=== PATIENT | female | born 1980 | race Caucasian/White ===

== ENCOUNTER 2017-01-31 14:58 | Emergency (ER) ==
[2017-01-31 15:10] VITALS: BP 135/79; TEMP 98.6; BMI 27.4
[2017-01-31] MEDS ORDERED: SODIUM CHLORIDE 1,000 ML IV STA (15:10)
[2017-01-31 15:19] LABS: BASOPHILS % (AUTO) 0.4 % (0.0-3.0); EOSINOPHILS # (AUTO) 0.1 K/ul (0.0-0.7); EOSINOPHILS % (AUTO) 0.5 % (0.0-7.0); HEMATOCRIT 35.8 % (37.0-47.0); HEMOGLOBIN 12.8 g/dl (12.0-16.0); IMMATURE GRANULOCYTE % (AUTO) 0.4 % (0.0-5.0); LYMPHOCYTES # (AUTO) 2.9 K/uL (0.60-3.4); LYMPHOCYTES % (AUTO) 26.2 (10.0-50.0); MEAN CORPUSCULAR HEMOGLOBIN 30.9 pg (27.0-31.0); MEAN CORPUSCULAR HGB CONC 35.8 (31.8-35.4); MEAN CORPUSCULAR VOLUME 86.5 fl (81.0-99.0); MONOCYTES # (AUTO) 0.8 K/uL (0.4-2.0); MONOCYTES % (AUTO) 7.2 (0-10); NEUTROPHILS # (AUTO) 7.2 K/ul (2.0-6.9); NEUTROPHILS % (AUTO) 65.3; PLATELET COUNT 255 10^3/uL (140-440); RED BLOOD COUNT 4.14 10^6/ul (4.20-5.40)
[2017-01-31 15:32] LABS: SERUM PREGNANCY INTERNAL QC INTERNAL QC VALID
[2017-01-31 15:39] LABS: ALBUMIN 4.3 g/dL (3.4-5.0); ALBUMIN/GLOBULIN RATIO 1.3; ANION GAP 12.2; BILIRUBIN,TOTAL 0.38 mg/dL (0.00-1.20); BUN/CREATININE RATIO 10.41; CALCIUM 9.5 mg/dL (8.2-10.2); CREATININE 0.96 mg/dL (0.60-1.30); POTASSIUM 3.2 mmol/L (3.5-5.10); TOTAL PROTEIN 7.6 g/dL (6.4-8.2)
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
== END 2017-01-31 18:45 | disposition home or self-care (01) ==
LOC: ED 14:58
DX: M54.2 Cervicalgia (principal); R07.89 Other chest pain; R51 Headache; M79.1 Myalgia; V47.5XXA Car driver injured in collision with fixed or stationary object in traffic accident, initial encounter; F17.210 Nicotine dependence, cigarettes, uncomplicated
CPT/HCPCS: 36415; 80053; 82150; 83690; 84702; 84703; 85025; 96360; 96361; 99283

== ENCOUNTER 2017-02-16 01:45 | Outpatient (CLI) | END 2017-02-16 01:46 | disposition short-term general hospital (02) | LOC: AMBL 01:45 | PROVIDERS: ATTEND Family Medicine | DX: R10.31 Right lower quadrant pain (principal) ==

== ENCOUNTER 2017-07-21 14:39 | Inpatient (IN) ==
[2017-07-21 14:43] VITALS: BMI 28.3
[2017-07-21] MEDS ORDERED: SODIUM CHLORIDE 500 ML IV STA (15:12)
[2017-07-21] MEDS ORDERED: TYLENOL PO STA (15:15)
--- NOTE | 2017-07-21 15:16 | ED.PDOC ---
General ED Provider: Dr. GEOVANNA MANNING Chief Complaint: Fever Stated Complaint: Fever and Abdominal pain. Patient states that 3 days ago she developed RLQ abdominal pain. The pain radiated into Rt FLANK. Denies symptoms of dysuria or vaginal discharge. No chance of .Has taken no antipyretitic meds today. No recent uti. Experiencing chills. Time Seen by Physician: 14:50 Mode of Arrival: Walk-In Information Source: Patient Exam Limitations: No limitations Primary Care Provider: EDIS ARTEAGA Referred to ED by: PCP Nursing and Triage Documentation Reviewed and Agree: Yes Reviewed sepsis parameters & appropriate labs ordered?: Yes System Inflammatory Response Syndrome: Temp 101F or Greater, Pulse >90 BPM Sepsis Protocol: For patient's 13 years and over: Temp is 96.8 and below OR 101 and greater Pulse >90 BPM Resp >20/minute Acutely Altered Mental Status Are patient's symptoms suggestive of a new infection, such as: -Pneumonia -Skin, Soft Tissue -Endocarditis -UTI -Bone, Joint Infection -Implantable Device -Acute Abdominal Infection -Wound Infection -Meningitis -Blood Stream Catheter Infection -Unknown System Inflammatory Response Syndrome: Not Applicable GI Complaint Exam - Abdominal Pain Complaint/Exam Symptoms Are: Still present Timing: Constant Initial Severity: Severe Current Severity: Severe Location of Pain: RLQ, Suprapubic (Flank) Radiates To: Reports: Flank Character: Reports: Sharp, Aching, Burning Aggravating: Reports: Movement, Deep breaths Alleviating: Reports: Rest Associated Signs and Symptoms: Reports: Fever, Back pain, Constipation. Denies : Blood in stool, Dysuria, Urinary frequency, Vaginal bleeding, Vaginal discharge, Nausea, Vomiting, Diarrhea Review of Systems - Review Of Systems Constitutional: Reports: Chills, Fever, Loss of appetite Eyes: Reports: No symptoms Ears, Nose, Mouth, Throat: Reports: No symptoms Respiratory: Reports: No symptoms Cardiac: Reports: No symptoms GI: Reports: No symptoms : Reports: Discharge, Flank pain, Pain. Denies: Burning, Dysuria, Frequency Musculoskeletal: Reports: Back pain Skin: Reports: No symptoms Neurological: Reports: No symptoms Endocrine: Reports: No symptoms Hematologic/Lymphatic: Reports: No symptoms All Other Systems: Reviewed and Negative Past Medical History - Past Medical History Previously Healthy: Yes Endocrine: Reports: Unknown Cardiovascular: Reports: Unknown Respiratory: Reports: Unknown Hematological: Reports: Unknown Gastrointestinal: Reports: Unknown Genitourinary: Reports: Unknown Neuro/Psych: Reports: Unknown Musculoskeletal: Reports: Unknown Cancer: Reports: Unknown Last Menstrual Period: UTERINE ABLASION - Surgical History General Surgical History: Reports: Unknown - Family History Family History: Reports: Unknown - Social History Smoking Status: Current every day smoker, Heavy tobacco smoker Hx Substance Use: No Alcohol Screening: None - Immunizations Tetanus Shot up to Date: No Physical Exam - Physical Exam Appearance: Ill-appearing, Thin Ill-appearing: Moderate Pain Distress: Severe Eyes: ANGELICA, EOMI, Conjunctiva clear ENT: Ears normal, Nose normal, Oropharynx normal Neck: Nonsupple Respiratory: Airway patent, Breath sounds clear, Breath sounds equal Cardiovascular: RRR, Pulses normal, No rub, No murmur, Irregular rhythm GI/: Soft Musculoskeletal: Normal strength (Severe Rt Flank tenderness), ROM intact, No edema, No calf tenderness Skin: Warm, Diaphoretic Neurological: Sensation intact Psychiatric: Affect appropriate, Mood appropriate Re-Evaluation - Re-Evaluation Time of Re-Evaluation: 17:00 Status: Improved Vital Signs Stable: Yes Appearance: NAD Lungs: Clear Skin: Warm and Dry Neuro: Alert and Oriented X3 CV: RRR (Discussed case with Dr Rubio who agrees to accept patient for admission ) Physician Notification - Case Discussed Physician Notified: Dr Leroy Rubio Time of Notification: 17:00 Critical Care Note - Critical Care Note Total Time (mins): 30 Course - Course Hematology/Chemistry: 07/21/17 15:25 07/21/17 15:25 Orders, Labs, Meds: Lab Review 07/21/17 07/21/17 07/21/17 15:25 15:25 15:25 WBC 14.72 H RBC 3.70 L Hgb 11.4 L Hct 32.4 L MCV 87.6 MCH 30.8 MCHC 35.2 RDW Coeff of Marbin 11.7 Plt Count 160 Immature Gran % (Auto) 0.5 Neut % (Auto) 77.7 Lymph % (Auto) 9.5 L Ulster % (Auto) 12.0 H Eos % (Auto) 0.1 Baso % (Auto) 0.2 Immature Gran # (Auto) 0.1 Neut # 11.4 H Lymph # 1.4 Ulster # 1.8 Eos # 0.0 Baso # 0.0 Sodium 133 L Potassium 3.8 Chloride 99 Carbon Dioxide 23 Anion Gap 14.8 BUN 7 Creatinine 0.89 Estimated GFR (MDRD) 71.00 BUN/Creatinine Ratio 7.86 Glucose 104 Lactic Acid 12.4 Calcium 8.5 Total Bilirubin 0.5 AST 15 ALT 14 Alkaline Phosphatase 66 Total Protein 6.9 Albumin 2.9 L Globulin 4.0 Albumin/Globulin Ratio 0.73 Lipase 8 Procalcitonin 07/21/17 15:25 WBC RBC Hgb Hct MCV MCH MCHC RDW Coeff of Marbin Plt Count Immature Gran % (Auto) Neut % (Auto) Lymph % (Auto) [place] % (Auto) Eos % (Auto) Baso % (Auto) Immature Gran # (Auto) Neut # Lymph # Ulster # Eos # Baso # Sodium Potassium Chloride Carbon Dioxide Anion Gap BUN Creatinine Estimated GFR (MDRD) BUN/Creatinine Ratio Glucose Lactic Acid Calcium Total Bilirubin AST ALT Alkaline Phosphatase Total Protein Albumin Globulin Albumin/Globulin Ratio Lipase Procalcitonin 0.25 Orders Category Date Time Status [facility] ADMISSION 07/21/17 17: 03 Active NPO REMINDER: IMAGING ONCE CARE 07/21/17 15:39 Completed TELEMETRY MONITORING TELE CARE 07/21/17 17:04 Active BLOOD CULTURE (ED ONLY) Stat LAB 07/21/17 15:25 Received CBC W/ AUTO DIFF Stat LAB 07/21/17 15:25 Completed CMP [COMPREHENSIVE METABOLIC PANEL] Stat LAB 07/21/17 15:25 Completed LACTIC ACID Stat LAB 07/21/17 15:25 Completed LIPASE Stat LAB 07/21/17 15:25 Completed PROCALCITONIN Stat LAB 07/21/17 15:25 Completed URINALYSIS C & S IF INDICATED Stat LAB 07/21/17 15:14 Uncollected Acetaminophen [Tylenol] MEDS 07/21/17 15:15 Discontinued 650 mg PO ONCE STA Dexamethasone 4 mg/ml Inj [Decadron 4 mg/ml Sdv] MEDS 07/21/17 17:05 Stat 4 mg IVP ONCE STA Hydromorphone HCl [Dilaudid 1 mg/ml Syringe] MEDS 07/21/17 16:35 Discontinued 1 mg IVP ONCE STA Ibuprofen [Motrin] MEDS 07/21/17 17:06 Stat 600 mg PO ONCE STA Levofloxacin/D5w [Levaquin] 150 ml MEDS 07/21/17 15:49 Discontinued IV .STK-MED Levofloxacin/D5w [Levaquin] 750 mg MEDS 07/21/17 15:42 Active Premix 150 ml D5w 1 bag IV ONCE Promethazine HCl [Phenergan 25 mg/ml Vial] MEDS 07/21/17 16:37 Discontinued 25 mg .ROUTE .STK-MED ONE Promethazine HCl [Phenergan 25 mg/ml Vial] 25 mg MEDS 07/21/17 16:34 Active 0.9 % Sodium Chloride [Sodium Chloride] 50 ml IV ONCE Sodium Chloride 0.9% [Sodium Chloride] 500 ml MEDS 07/21/17 15:12 Discontinued IV BOLUS CHEST, 2 VIEWS PA & LAT Stat RADS 07/21/17 16:[address] ABDOMEN/PELVIS W/WO CONTRAS Stat RADS 07/21/17 15:37 Completed Medications Discontinued Medications Generic Name Dose Route Start Last Admin Trade Name Freq PRN Reason Stop Dose Admin Acetaminophen 650 mg 07/21/17 15:15 07/21/17 15:22 Tylenol PO 07/21/17 15:16 650 mg ONCE STA Administration Dexamethasone Sodium Phosphate 4 mg 07/21/17 17:05 Decadron 4 Mg/Ml Sdv IVP 07/21/17 17:06 ONCE STA Hydromorphone HCl 1 mg 07/21/17 16:35 07/21/17 16:43 Dilaudid 1 Mg/Ml Syringe IVP 07/21/17 16:36 1 mg ONCE STA Administration Sodium Chloride 500 mls @ 500 mls/hr 07/21/17 15:12 07/21/17 15:18 Sodium Chloride IV 07/21/17 16:11 500 mls/hr BOLUS STA Administration Levofloxacin/Dextrose 750 mg/ 150 mls @ 100 mls/hr 07/21/17 15:42 07/21/17 15 :53 Dextrose IV 07/21/17 17:11 100 mls/hr ONCE STA Administration Promethazine HCl 25 mg/ Sodium 51 mls @ 75 mls/hr 07/21/17 16:34 07/21/17 17: 12 Chloride IV 07/21/17 17:14 Not Given ONCE STA Ibuprofen 600 mg 07/21/17 17:06 07/21/17 17:12 Motrin PO 07/21/17 17:07 Not Given ONCE STA Vital Signs: Temp Pulse Resp BP Pulse Ox 07/21/17 17:07 100.3 F H 07/21/17 16:30 102.2 F H 07/21/17 14:40 104.5 F H 133 H 20 134/84 96 Departure - Departure Time of Disposition: 17:15 Disposition: ADMITTED INPATIENT Discharge Problem: Pyelonephritis, Sepsis Condition: Fair Pt referred to PMD for follow-up: Yes (post hospitalism) IPMP verified?: No (NI) Allergies/Adverse Reactions: Allergies No Known Allergies Allergy (Unverified 07/21/17 14:43) Home Medications: Ambulatory Orders 1 [No Reported Medications] 01/31/17 Transfer Form Completed: Yes Disposition Discussed With: Patient, Family, Other (Dr Rubio Contacted and explained to him pts conditon ;agreed to accept patient)
[2017-07-21] MEDS ORDERED: LEVAQUIN 750 MG in PREMIX 150 ML D5W 1 BAG IV STA (15:42)
[2017-07-21] MEDS ORDERED: LEVAQUIN 150 ML IV ONE (15:49)
--- NOTE | 2017-07-21 16:22 | DI ---
EXAM: Chest two views HISTORY: Abdominal pain COMPARISON: None TECHNIQUE: Two views of the chest were performed FINDINGS: The lungs are clear. There is no pleural effusion or pneumothorax. The heart is normal i n size. The mediastinal contour is normal. There are no acute abnormalities of the bones. No free a ir beneath the diaphragm. IMPRESSION: No acute cardiopulmonary process.
--- NOTE | 2017-07-21 16:32 | CT ---
EXAM: CT ABDOMEN AND PELVIS HISTORY: Acute abdominal/flank pain. TECHNIQUE: CT abdomen and pelvis with and without intravenous contrast. Multiplanar images provided . 75 ml Omnipaque. FINDINGS: Comparison may be made to 01/31/2017. No nephrolithiasis is identified. No noticeable hydronephrosis. The the right kidney has scattered areas of decreased cortical enhancement and there is moderate right perinephric fat stranding. Urina ry bladder is grossly unremarkable. Liver, spleen, gallbladder, pancreas and adrenal glands are within normal limits. Normal abdominal a mookie. No gastric distension. Normal appendix. Bowel gas pattern is normal. Uterus appears normal. No ascites. Ventral abdominal wall is intact without herniation. Bones appear appropriate for age. Lung bases are clear. There is no pneumoperitoneum. IMPRESSION: Findings most concerning for right pyelonephritis. Conceivably this appearance could be consistent with recent obstruction although no calculi are identified.
[2017-07-21] MEDS ORDERED: PHENERGAN 25 MG/ML VIAL 25 MG in SODIUM CHLORIDE 50 ML IV STA (16:34)
[2017-07-21] MEDS ORDERED: DILAUDID 1 MG/ML SYRINGE IVP STA (16:35)
[2017-07-21] MEDS ORDERED: PHENERGAN 25 MG/ML VIAL ONE (16:37)
[2017-07-21] MEDS ORDERED: AZACTAM 1 GM in SODIUM CHLORIDE 50 ML IV STA (17:04)
[2017-07-21] MEDS ORDERED: DECADRON 4 MG/ML SDV IVP STA (17:05)
[2017-07-21] MEDS ORDERED: MOTRIN PO STA (17:06)
[2017-07-21] MEDS ORDERED: PHENERGAN 25 MG/ML VIAL 25 MG in SODIUM CHLORIDE 50 ML IV PRN (17:45)
[2017-07-21] MEDS: SODIUM CHLORIDE 500 ML IV SCH (18:18)
[2017-07-21] MEDS ORDERED: AZACTAM ONE (18:20)
[2017-07-21] MEDS: AZACTAM 1 GM in SODIUM CHLORIDE 50 ML IV SCH ×2 (18:22→21:08)
[2017-07-21] MEDS: TYLENOL PO SCH (19:48)
[2017-07-21] MEDS ORDERED: DILAUDID 2 MG/ML SYRINGE ONE (22:26)
[2017-07-22] MEDS ORDERED: DILAUDID 2 MG/ML SYRINGE ONE (04:58)
[2017-07-22] MEDS: TYLENOL PO SCH ×3 (05:03→20:33)
[2017-07-22] MEDS: AZACTAM 1 GM in SODIUM CHLORIDE 50 ML IV SCH ×3 (05:04→20:31)
[2017-07-22] MEDS ORDERED: AZACTAM ONE (05:22)
[2017-07-22] MEDS: SODIUM CHLORIDE 500 ML IV SCH ×3 (05:41→13:04)
[2017-07-22] MEDS ORDERED: SODIUM CHLORIDE 1,000 ML IV SCH ×2 (07:30→12:00)
[2017-07-22] MEDS: LEVAQUIN 750 MG in PREMIX 150 ML D5W 1 BAG IV SCH (07:45)
[2017-07-22] MEDS ORDERED: PHENERGAN 25 MG/ML VIAL ONE (12:46)
[2017-07-22] MEDS: DILAUDID 1 MG/ML SYRINGE IVP PRN (13:00)
[2017-07-23] MEDS: AZACTAM 1 GM in SODIUM CHLORIDE 50 ML IV SCH ×2 (05:19→20:20)
[2017-07-23] MEDS: TYLENOL PO SCH (05:19)
[2017-07-23] MEDS: DILAUDID 1 MG/ML SYRINGE IVP PRN ×3 (05:24→20:20)
[2017-07-23] MEDS ORDERED: TYLENOL PO PRN (08:37)
[2017-07-23] MEDS: LEVAQUIN 750 MG in PREMIX 150 ML D5W 1 BAG IV SCH (09:19)
--- NOTE | 2017-07-23 10:06 | PCM.PROG ---
Attending Provider: ATTENDING PROVIDER: [facility] This patient is seen with Dorene To, Nurse Practitioner. DATE OF SERVICE: 07/23/17 SUBJECTIVE: This 37 year old WHITE/ F was hospitalized 07/21/17. The patient is alert, lying in bed. No fever since July 21, 2017. She has been drinking well, no nausea. CT scan showed acute pyelonephritis. REVIEW OF SYSTEMS: CONSTITUTIONAL: No night sweats. No fatigue, malaise, lethargy. No fever or chills. HEENT: Eyes: No visual changes. No eye pain. No eye discharge. ENT: No runny nose. No epistaxis. No sinus pain. No odynophagia. No congestion. RESPIRATORY: No cough, no congestion. No hemoptysis. No shortness of breath. CARDIOVASCULAR: No angina symptoms. No CHF symptoms. No atypical chest pain for CAD. No palpitations. No orthopnea.. GASTROINTESTINAL: Right flank pain. No nausea or vomiting. No diarrhea or constipation. No hematemesis. No hematochezia. GENITOURINARY: No urgency. No frequency. No dysuria. No hematuria. No obstructive symptoms. No discharge. No pain. No significant abnormal bleeding. MUSCULOSKELETAL: No musculoskeletal pain; no joint swelling. NEUROLOGICAL: Awake, alert, oriented to time, place and person. No headache. No neck pain. No syncope. No seizures. No dizziness. PSYCHIATRIC: Not anxious. No depression. No suicidal thoughts. No homicidal thoughts. SKIN: No rash. No lesions. No wounds. ENDOCRINE: No unexplained weight loss. No weight gain. HEMATOLOGIC/LYMPHATIC: No anemia. No purpura. No petechiae. No prolonged or excessive bleeding. No palpable lymph nodes. PHYSICAL EXAMINATION: GENERAL: The patient is awake, alert and oriented, lying in bed in no distress. VITAL SIGNS: Temperature 97.9 F, Pulse 75, Respiratory Rate 18, BP 113/70, Pulse Ox 97% HEENT: Head normocephalic, atraumatic. Eyes: Extraocular muscles are intact. Pupils are equal, round and reactive to light and accommodation. Ears: No lesions. Nose appeared normal. Throat: No exudate or erythema. NECK: Supple. No JVD, no carotid bruit. No lymphadenopathy or thyromegaly. LUNGS: Clear to auscultation. Percussion note normal. Chest symmetrical. HEART: S1, S2, no S3. No murmurs. No cyanosis or clubbing. No ascites. Pulses: Dorsalis pedis and posterior tibial pulses +1 to +2 both sides. ABDOMEN: Soft. Non-tender. Bowel sounds active. Mild right CVA tenderness. No mass felt. EXTREMITIES: No edema. Full range of motion of all extremities, equal. NEUROLOGIC: No focal deficit. Cranial nerves II through XII are grossly intact. No headache, no double vision or headache. SKIN: Not dry. Intact. Turgor-normal. LYMPHATIC: No palpable lymph nodes/no lymphedema. MUSCULOSKELETAL: Normal joints with no swelling. Muscle tone is normal. LAB REVIEW: 07/23/17 04:20 07/23/17 04:20 07/23/17 04:20: Sodium 142, Potassium 4.0, Chloride 110 H, Carbon Dioxide 25, Anion Gap 11.0, BUN 8, Creatinine 0.70, Estimated GFR (MDRD) 94.00, BUN/ Creatinine Ratio 11.42, Glucose 99, Calcium 8.3, Total Bilirubin < 0.3, AST 22, ALT 20, Alkaline Phosphatase 71, Total Protein 5.7 L, Albumin 2.4 L, Globulin 3.3, Albumin/Globulin Ratio 0.73 07/23/17 04:20: WBC 11.38 H, RBC 3.16 L, Hgb 9.5 L, Hct 28.3 L, MCV 89.6, MCH 30.1, MCHC 33.6, RDW Coeff of Marbin 11.9, Plt Count 221 D, Immature Gran % (Auto ) 0.4, Neut % (Auto) 70.8, Lymph % (Auto) 21.4, Arthur % (Auto) 7.0, Eos % (Auto) 0.2, Baso % (Auto) 0.2, Immature Gran # (Auto) 0.1, Neut # 8.1 H, Lymph # 2.4, Arthur # 0.8, Eos # 0.0, Baso # 0.0 07/22/17 05:30: Vitamin B12 237 07/22/17 05:30: Iron 31 L, TIBC 178 L, % Saturation 17, Unsat Iron Binding 147, Ferritin 214.87 H, Folate 9.3 07/22/17 05:30: Reticulocyte % (Auto) 0.95, Absolute Retic 0.0314, Retic Hgb Equivalent 26.9 ASSESSMENT: 1. ACUTE PYELONENHRITIS WITH FEVER IMPROVING 2. SMOKER PLAN: 1. Azactam every 12 hr 2. D/C telemetry 3. D/C IV fluids 4. Tylenol p.r.n. Plan and coordination of the patient's care discussed in the presence of Pricing Intern and nurse. CONDITION: Stable SCRIBED BY: Senia MARTINEZ scribed while in presence of service performed by Dr. Armendariz/Dorene To APRN on 07/23/17 ([id number])
[2017-07-24] MEDS ORDERED: VITAMIN B-12 IM STA (08:02)
[2017-07-24] MEDS: AZACTAM 1 GM in SODIUM CHLORIDE 50 ML IV SCH ×2 (08:31→21:44)
[2017-07-24] MEDS: LEVAQUIN 750 MG in PREMIX 150 ML D5W 1 BAG IV SCH (09:20)
--- NOTE | 2017-07-24 12:46 | PCM.PROG ---
Attending Provider: ATTENDING PROVIDER: [facility] This patient is seen with Dorene To, Nurse Practitioner. DATE OF SERVICE: 07/24/17 SUBJECTIVE: This 37 year old WHITE/ F was hospitalized 07/21/17. The patient is alert, lying in bed. She still has some right flank pain. No fever. No nausea. REVIEW OF SYSTEMS: CONSTITUTIONAL: No night sweats. No fatigue, malaise, lethargy. No fever or chills. HEENT: Eyes: No visual changes. No eye pain. No eye discharge. ENT: No runny nose. No epistaxis. No sinus pain. No odynophagia. No congestion. RESPIRATORY: No cough, no congestion. No hemoptysis. No shortness of breath. CARDIOVASCULAR: No angina symptoms. No CHF symptoms. No atypical chest pain for CAD. No palpitations. No orthopnea.. GASTROINTESTINAL: No abdominal pain. No nausea or vomiting. No diarrhea or constipation. No hematemesis. No hematochezia. GENITOURINARY: No urgency. No frequency. No dysuria. No hematuria. No obstructive symptoms. No discharge. No pain. No significant abnormal bleeding. MUSCULOSKELETAL: Right flank pain. NEUROLOGICAL: Awake, alert, oriented to time, place and person. No headache. No neck pain. No syncope. No seizures. No dizziness. PSYCHIATRIC: Not anxious. No depression. No suicidal thoughts. No homicidal thoughts. SKIN: No rash. No lesions. No wounds. ENDOCRINE: No unexplained weight loss. No weight gain. HEMATOLOGIC/LYMPHATIC: No anemia. No purpura. No petechiae. No prolonged or excessive bleeding. No palpable lymph nodes. PHYSICAL EXAMINATION: GENERAL: The patient is awake, alert and oriented, lying in bed in no distress. VITAL SIGNS: Temperature 99.3 F, Pulse 88, Respiratory Rate 16, BP 112/66, Pulse Ox 96% HEENT: Head normocephalic, atraumatic. Eyes: Extraocular muscles are intact. Pupils are equal, round and reactive to light and accommodation. Ears: No lesions. Nose appeared normal. Throat: No exudate or erythema. NECK: Supple. No JVD, no carotid bruit. No lymphadenopathy or thyromegaly. LUNGS: Clear to auscultation. Percussion note normal. Chest symmetrical. HEART: S1, S2, no S3. No murmurs. No cyanosis or clubbing. No ascites. Pulses: Dorsalis pedis and posterior tibial pulses +1 to +2 both sides. ABDOMEN: Soft. Non-tender. Bowel sounds active. Mild right CVA tenderness. No mass felt. EXTREMITIES: No edema. Full range of motion of all extremities, equal. NEUROLOGIC: No focal deficit. Cranial nerves II through XII are grossly intact. No headache, no double vision or headache. SKIN: Not dry. Intact. Turgor-normal. LYMPHATIC: No palpable lymph nodes/no lymphedema. MUSCULOSKELETAL: Normal joints with no swelling. Muscle tone is normal. LAB REVIEW: 07/24/17 04:50 07/24/17 04:50 07/24/17 04:50: Sodium 140, Potassium 4.2, Chloride 105, Carbon Dioxide 28, Anion Gap 11.2, BUN 7, Creatinine 0.77, Estimated GFR (MDRD) 84.00, BUN/ Creatinine Ratio 9.09, Glucose 84, Calcium 8.4, Total Bilirubin < 0.3, AST 23, ALT 24, Alkaline Phosphatase 65, Total Protein 5.3 L, Albumin 2.3 L, Globulin 3.0, Albumin/Globulin Ratio 0.77 07/24/17 04:50: WBC 9.37, RBC 3.14 L, Hgb 9.4 L, Hct 27.9 L, MCV 88.9, MCH 29.9 , MCHC 33.7, RDW Coeff of Marbin 12.2, Plt Count 223, Neutrophils % (Manual) 47.0, Lymphocytes % (Manual) 46.0, Monocytes % (Manual) 7.0, Anisocytosis Not present ASSESSMENT: 1. RIGHT PYELONEPHRITIS 2. ANEMIA PLAN: 1. B12 shot 2. Repeat CT scan of abdomen and pelvis without Plan and coordination of the patient's care discussed in the presence of Boiler Out and nurse. CONDITION: Stable SCRIBED BY: Senia MARTINEZ scribed while in presence of service performed by Dr. Armendariz/Dorene To APRN on 07/24/17 ([id number])
--- NOTE | 2017-07-24 13:37 | CT ---
EXAM: CT of the abdomen pelvis without contrast History: Abdominal pain. Comparison: CT abdomen pelvis 08/18/2017 Technique: Multiplanar CT images through the abdomen pelvis were obtained without the administration of IV contrast Findings: Subsegmental atelectasis seen within the lower lungs. No acute osseous abnormalities. No focal liver or splenic lesions. No peripancreatic inflammation. Adrenal glands are unremarkable. No significant interval change in the right perinephric stranding. No renal stones and no hydronep hrosis. The appendix is normal. No ureteral calculi. Left kidney is unremarkable. No bowel obstru ction. No bladder wall thickening. Adnexal structures appear appropriate for patient's age. No per irectal inflammation. No free air and no free fluid. Impression: No significant interval change in the right perinephric stranding consistent with pyelon ephritis. No other significant findings.
--- NOTE | 2017-07-24 14:23 | PN ---
DATE OF SERVICE: 07/23/17 SUBJECTIVE: 37 year old white female seen with Nurse Practitioner has acute pyelonephritis. The patient's condition is stable. Hgb and hct are stable with hgb of 9.5, hct 28. The patient has anemia. The patient is afebrile. PHYSICAL EXAMINATION: HEENT: Head normocephalic, atraumatic. Eyes: Extraocular muscles are intact. Pupils are equal, round and reactive to light and accommodation. Ears: No lesions. Nose appeared normal. Throat: No exudate or erythema. NECK: Supple. No JVD, no carotid bruit. No lymphadenopathy or thyromegaly. LUNGS: Decreased breath sounds but clear to auscultation. Percussion note normal. Chest symmetrical. HEART: S1, S2, no S3. No murmurs. No cyanosis or clubbing. No ascites. Pulses: Dorsalis pedis and posterior tibial pulses +1 to +2 both sides. ABDOMEN: Soft. Nontender. Bowel sounds active. No CVA tenderness. No mass felt. EXTREMITIES: No edema. Full range of motion of all extremities, equal. NEUROLOGIC: No focal deficit. Cranial nerves II through XII are grossly intact. No headache, no double vision or headache. SKIN: Not dry. Intact. Turgor - normal. LYMPHATIC: No palpable lymph nodes/no lymphedema. MUSCULOSKELETAL: Normal joints with no swelling. Muscle tone is normal. ASSESSMENT: 1. Acute pyelonephritis PLAN: 1. Continue Levaquin and Azactam TIME SPENT: More than 30 minutes. Plan and coordination of the patient's care discussed in the presence of nurse. EUGENE
[2017-07-25] MEDS: LEVAQUIN 750 MG in PREMIX 150 ML D5W 1 BAG IV SCH (08:50)
[2017-07-25] MEDS ORDERED: FERROUS SULFATE PO SCH (09:00)
--- NOTE | 2017-07-25 09:48 | PCM.PROG ---
Attending Provider: [facility] DATE OF SERVICE: 07/25/17 SUBJECTIVE: This 37 year old WHITE/ F was hospitalized 07/21/17 with right-sided acute pyelonephritis. The patient is afebrile. Appetite and strengh improving. REVIEW OF SYSTEMS: CONSTITUTIONAL: Strength is improving. No night sweats. No malaise, lethargy. No fever or chills. HEENT: Eyes: No visual changes. No eye pain. No eye discharge. ENT: No runny nose. No epistaxis. No sinus pain. No odynophagia. No congestion. RESPIRATORY: No cough, no congestion. No hemoptysis. No shortness of breath. CARDIOVASCULAR: No angina symptoms. No CHF symptoms. No atypical chest pain for CAD. No palpitations. No orthopnea.. GASTROINTESTINAL: Appetite is improving. Mild abdominal discomfort. No nausea or vomiting. No diarrhea or constipation. No hematemesis. No hematochezia. GENITOURINARY: No urgency. No frequency. No dysuria. No hematuria. No obstructive symptoms. No discharge. No pain. No significant abnormal bleeding. MUSCULOSKELETAL: No musculoskeletal pain; no joint swelling. NEUROLOGICAL: Awake, alert, oriented to time, place and person. No headache. No neck pain. No syncope. No seizures. No dizziness. PSYCHIATRIC: Not anxious. No depression. No suicidal thoughts. No homicidal thoughts. SKIN: No rash. No lesions. No wounds. ENDOCRINE: No unexplained weight loss. No weight gain. HEMATOLOGIC/LYMPHATIC: No anemia. No purpura. No petechiae. No prolonged or excessive bleeding. No palpable lymph nodes. PHYSICAL EXAMINATION: GENERAL: The patient is awake, alert and oriented, lying in bed in no distress. VITAL SIGNS: Temperature 98.2 F, Pulse 70, Respiratory Rate 18, BP 136/90, Pulse Ox 98% HEENT: Head normocephalic, atraumatic. Eyes: Extraocular muscles are intact. Pupils are equal, round and reactive to light and accommodation. Ears: No lesions. Nose appeared normal. Throat: No exudate or erythema. NECK: Supple. No JVD, no carotid bruit. No lymphadenopathy or thyromegaly. LUNGS: Clear to auscultation. Percussion note normal. Chest symmetrical. HEART: S1, S2, no S3. No murmurs. No cyanosis or clubbing. No ascites. Pulses: Dorsalis pedis and posterior tibial pulses +1 to +2 both sides. ABDOMEN: Soft. Very mild abdominal discomfort. Bowel sounds active. No CVA tenderness. No mass felt. EXTREMITIES: No edema. Full range of motion of all extremities, equal. NEUROLOGIC: No focal deficit. Cranial nerves II through XII are grossly intact. No headache, no double vision or headache. SKIN: Warm and dry. Intact. Turgor-normal. LYMPHATIC: No palpable lymph nodes/no lymphedema. MUSCULOSKELETAL: Normal joints with no swelling. Muscle tone is normal. LAB REVIEW: 07/25/17 04:00 07/25/17 04:00 07/25/17 04:00: Sodium 139, Potassium 4.0, Chloride 103, Carbon Dioxide 29, Anion Gap 11.0, BUN 8, Creatinine 0.77, Estimated GFR (MDRD) 84.00, BUN/ Creatinine Ratio 10.38, Glucose 98, Calcium 9.0, Total Bilirubin < 0.3, AST 20, ALT 25, Alkaline Phosphatase 65, Total Protein 6.3 L, Albumin 2.7 L, Globulin 3.6, Albumin/Globulin Ratio 0.75 07/25/17 04:00: WBC 10.47 H, RBC 3.59 L, Hgb 10.8 L, Hct 31.4 L, MCV 87.5, MCH 30.1, MCHC 34.4, RDW Coeff of Marbin 11.8, Plt Count 253, Neutrophils % (Manual) 66.0, Lymphocytes % (Manual) 30.0, Monocytes % (Manual) 3.0, Basophils % (Manual ) 1.0, Anisocytosis Not present 07/22/17 05:30: Transferrin 149 L ASSESSMENT: 1. Acute pyelonephritis, right-sided resolving 2. Chronic anemia PLAN: 1. Ferrous Sulfate 325 mg p.o. daily 2. Repeat CT scan showed evidence of pyelonephritis Plan and coordination of the patient's care discussed in the presence of Director Adult and nurse. EDUCATION: Counseling for smoking done. CONDITION: Stable SCRIBED BY: CHIRAG BORGES Health Therapist scribed while in presence of service performed by Dr[facility] on 07/25/17 ([id number])
[2017-07-25 11:57] VITALS: BP 129/86; TEMP 98.1
[2017-07-25] MEDS: AZACTAM 1 GM in SODIUM CHLORIDE 50 ML IV SCH (13:31)
--- NOTE | 2017-07-25 15:49 | CM.DICTOOL ---
ADMISSION: 07/21/17 17:08 DISCHARGE: 07/25/17 13:49 DATE OF SERVICE: 07/25/17 FINAL DIAGNOSIS ACUTE PYELONEPHRITIS ANEMIA, (IRON DEFICIENCY) HEAVY SMOKER UTERAN ABLASION LAST VITALS Temp Pulse Resp BP Pulse Ox 98.1 F 60 20 129/86 99 07/25/17 10:00 07/25/17 10:00 07/25/17 10:00 07/25/17 10:00 07/25/17 10:00 HOME MEDICATIONS NONE ALLERGIES No Known Allergies Allergy (Verified 07/21/17 18:28) NEW PRESCRIPTIONS: LEVAQUIN 500 MG, TAKE ONE TABLET BY MOUTH DAILY FOR 10 DAYS FERROUS SULFATE 325 MG, TAKE ONE TABLET BY MOUTH DAILY SMOKING: THE PATIENT IS AN EVERY DAY HEAVY SMOKER. SHE HAS BEEN PROVIDED INFORMATION/ EDUCATION REGARDING THE ADDED RISK A CONTINUATION OF HER TOBACCO HABIT CAUSES TO HER CARDIOVASCULAR/PULMONARY HEALTH. SHE ALSO HAS BEEN ADVISED OF THE BENEFITS OF COMPLETE CESSATION. SHE HAS NOT VERBALIZED HER INTENT TO STOP OR EVEN CUT DOWN. SHE WOULD BENEFIT FROM REINFORCEMENT OF THE INFORMATION PROVIDED AND CONTINUED ENCOURAGE FOR COMPLETE CESSATION DURING HER FOLLOW UP VISITS. DISEASE SPECIFIC EDUCATION: PYELONEPHRITIS IRON DEFICIENCY ANEMIA NEW MEDICATIONS FOLLOW UP SMOKING CESSATION LAB REVIEW: 07/25/17 04:00 07/25/17 04:00 07/25/17 04:00: Sodium 139, Potassium 4.0, Chloride 103, Carbon Dioxide 29, Anion Gap 11.0, BUN 8, Creatinine 0.77, Estimated GFR (MDRD) 84.00, BUN/ Creatinine Ratio 10.38, Glucose 98, Calcium 9.0, Total Bilirubin < 0.3, AST 20, ALT 25, Alkaline Phosphatase 65, Total Protein 6.3 L, Albumin 2.7 L, Globulin 3.6, Albumin/Globulin Ratio 0.75 07/25/17 04:00: WBC 10.47 H, RBC 3.59 L, Hgb 10.8 L, Hct 31.4 L, MCV 87.5, MCH 30.1, MCHC 34.4, RDW Coeff of Marbin 11.8, Plt Count 253, Neutrophils % (Manual) 66.0, Lymphocytes % (Manual) 30.0, Monocytes % (Manual) 3.0, Basophils % (Manual ) 1.0, Anisocytosis Not present PLAN: DISCHARGE HOME TODAY RETURN TO THE [facility] FOR FOLLOW UP ON 07/30/17 at 10 A.M. NEW MEDICATIONS CALLED IN TO IMAN LEVAQUIN 500 MG, TAKE ONE TABLET BY MOUTH DAILY FOR 10 DAYS FERROUS SULFATE 325 MG, TAKE ONE TABLET BY MOUTH DAILY ACTIVITY GET PLENTY OF REST AT HOME. GRADUALLY INCREASE YOUR ACTIVITY LEVEL ACCORDING TO YOUR TOLERATION DIET DRINK PLENTY OF LIQUIDS HEALTHY HEART DIET SUMMARY THE PATIENT IS ALERT AND ORIENTED X3. SHE CURRENTLY RESIDES AT HOME AND HAS BEEN INDEPENDENT WITH ADL'S. SHE REQUIRES NO DME, HOME HEALTH OR HOMEMAKING SERVICES. AT DISCHARGE SHE DESIRES TO RETURN HOME. HER SKIN TURGOR IS GOOD AND WITHOUT DECUBITUS ULCERS. HER HYDRATION NUTRITIONAL STATUS ARE VERY GOOD. SHE IS VOIDING WITHOUT DIFFICULTY AND NOT EXPERIENCING ANY DYSURIA, SUPRAPUBIC PAIN OR FLANK PAIN. SHE IS AFEBRILE AND DESIRES TO BE DISCHARGED TODAY. SHE IS WILLING TO FOLLOW UP AT THE [facility] MENTIONED ABOVE. CURRENT CODE STATUS FULL CODE BJ ARMENDARIZ M.D.
--- NOTE | 2017-07-26 10:42 | PN ---
DATE OF SERVICE: 07/24/17 SUBJECTIVE: The patient was admitted with acute pyelonephritis. She is afebrile. Repeat CAT scan still shows right pyelonephritis. Her appetite has improved and strength is improving. Her WBC count is 9,300. This morning her temperature was 99.3 and pulse 88, respiratory 16, blood pressure 112/66 and pulse ox 96%. The patient was seen and examined with Nurse Practitioner. TIME SPENT: More than 30 minutes. Plan and coordination of the patient's care discussed in the presence of nurse. EUGENE
--- NOTE | 2017-07-26 13:56 | PN ---
DATE OF SERVICE: 07/21/17 SUBJECTIVE: 37-year-old white female came to the emergency room with right flank, moderate to severe pain along with high fever of 104 with chills. The patient's condition started a couple of days prior to hospitalization. She has history of urinary tract infection. Medications - none. PHYSICAL EXAMINATION: GENERAL: The patient is oriented to time, place and person. VITAL SIGNS: Temperature 104, pulse 110/min, respiratory rate 15, BP 130/70. HEENT: Head normocephalic, atraumatic. Eyes: Extraocular muscles are intact. Pupils are equal, round and reactive to light and accommodation. Ears: No lesions. Nose appeared normal. Throat: No exudate or erythema. NECK: Supple. No JVD, no carotid bruit. No lymphadenopathy or thyromegaly. LUNGS: Decreased breath sounds but clear to auscultation. Percussion note normal. Chest symmetrical. HEART: S1, S2, no S3. No murmurs. No cyanosis or clubbing. No ascites. Pulses: Dorsalis pedis and posterior tibial pulses +1 to +2 both sides. ABDOMEN: Soft. Nontender. Bowel sounds active. No CVA tenderness. No mass felt. EXTREMITIES: No edema. Full range of motion of all extremities, equal. NEUROLOGIC: No focal deficit. Cranial nerves II through XII are grossly intact. No headache, no double vision or headache. SKIN: Not dry. Intact. Turgor - normal. LYMPHATIC: No palpable lymph nodes/no lymphedema. MUSCULOSKELETAL: Normal joints with no swelling. Muscle tone is normal. LABS: The patient had a CT scan of the abdomen done which showed acute pyelonephritis ont he right side. Unable to give urine. ASSESSMENT: 1. ACUTE PYELONEPHRITIS 2. DEHYDRATION PLAN: 1. Given IV fluids 125 cc/hr 2. Levaquin 750 mg the first dose and q.24 hr 3. Azactam 1 gm q.12 4. Daily CBC, CMP 5. Telemetry for 24 hours 6. EKG 7. Will do chest x-ray in the morning if not done 8. The patient has already had blood cultures, urine cultures to be done but unable to give specimen so far. CONDITION: STABLE TIME SPENT: More than 30 minutes. Plan and coordination of the patient's care discussed in the presence of nurse. EUGENE
--- NOTE | 2017-07-26 14:23 | PN ---
DATE OF SERVICE: 07/22/17 SUBJECTIVE: 37-year-old white female hospitalized with right flank pain going down to the right lower quadrant, duration 2 days with fever and chills. The pain was moderate. On a scale of 1 to 10 it was 6 to 8. The patient is feeling a lot better. REVIEW OF SYSTEMS: CONSTITUTIONAL: Mild fatigue. No night sweats. No malaise, lethargy. No fever or chills. HEENT: Eyes: No visual changes. No eye pain. No eye discharge. ENT: No runny nose. No epistaxis. No sinus pain. No sore throat. No odynophagia. No congestion. RESPIRATORY: No cough, no congestion. No hemoptysis. No shortness of breath. No PND. CARDIOVASCULAR: No angina symptoms. No CHF symptoms. No atypical chest pain for CAD. No palpitations. No orthopnea. GASTROINTESTINAL: No abdominal pain. No nausea or vomiting. No diarrhea or constipation. No hematemesis. No hematochezia. GENITOURINARY: No urgency. No frequency. No dysuria. No hematuria. No obstructive symptoms. No discharge. No pain. No significant abnormal bleeding. MUSCULOSKELETAL: No musculoskeletal pain; no joint swelling. NEUROLOGICAL: No headache. No neck pain. No syncope. No seizures. No dizziness. PSYCHIATRIC: Not anxious. No depression. No suicidal thoughts. No homicidal thoughts. SKIN: No rash. No lesions. No wounds. ENDOCRINE: No unexplained weight loss. No weight gain. HEMATOLOGIC/LYMPHATIC: No anemia. No purpura. No petechiae. No prolonged or excessive bleeding. No palpable lymph nodes. PHYSICAL EXAMINATION: GENERAL: The patient is oriented to time, place and person. VITAL SIGNS: Temperature 98.7, pulse 70, respiratory rate 14, BP 100/60, pulse ox 99%. HEENT: Head normocephalic, atraumatic. Eyes: Extraocular muscles are intact. Pupils are equal, round and reactive to light and accommodation. Ears: No lesions. Nose appeared normal. Throat: No exudate or erythema. NECK: Supple. No JVD, no carotid bruit. No lymphadenopathy or thyromegaly. LUNGS: Decreased breath sounds but clear to auscultation. Percussion note normal. Chest symmetrical. HEART: S1, S2, no S3. No murmurs. No cyanosis or clubbing. No ascites. Pulses: Dorsalis pedis and posterior tibial pulses +1 to +2 both sides. ABDOMEN: Soft. Nontender. Bowel sounds active. No CVA tenderness. No mass felt. EXTREMITIES: No edema. Full range of motion of all extremities, equal. NEUROLOGIC: No focal deficit. Cranial nerves II through XII are grossly intact. No headache, no double vision or headache. SKIN: Not dry. Intact. Turgor - normal. LYMPHATIC: No palpable lymph nodes/no lymphedema. MUSCULOSKELETAL: Normal joints with no swelling. Muscle tone is normal. LABS: Hemoglobin 9.9, hematocrit 28, WBC 8,300, normal differential. Creatinine 0.6, BUN 10, potassium 4.5. T4, TSH negative. ASSESSMENT: 1. ACUTE PYELONEPHRITIS, RIGHT-SIDED PLAN: 1. Decrease IV fluids 75 cc/hr. 2. Anemia profile to be done. 3. Continue antibiotics, Levaquin and Azactam pending culture reports. 4. Counseling for smoking done. 5. Advised to drink a lot of liquids. CONDITION: Stable TIME SPENT: More than 30 minutes. Plan and coordination of the patient's care discussed in the presence of nurse. EUGENE
--- NOTE | 2017-07-26 14:36 | HP ---
DATE OF SERVICE: 07/21/17 REASON FOR HOSPITALIZATION: The patient was seen on 07/21/17 for fever, chills, abdominal pain, duration two days. HISTORY OF PRESENT ILLNESS: 37-year-old white female came to the emergency room with the above problems. The patient had severe right flank pain going down to the right lower quadrant. On further investigation the patient had evidence of acute pyelonephritis by CT scan of the abdomen and pelvis. Duration of the symptoms, the patient had with fever and chills for the past two days. She was feeling weak and tired. PAST MEDICAL HISTORY: NONE PAST SURGICAL HISTORY: NONE REVIEW OF SYSTEMS: CONSTITUTIONAL: Fatigue. Fever and chills. No night sweats. No malaise, lethargy. HEENT: Eyes: No visual changes. No eye pain. No eye discharge. ENT: No runny nose. No epistaxis. No sinus pain. No sore throat. No odynophagia. No ear pain. No congestion. RESPIRATORY: No cough, no congestion. No hemoptysis. No shortness of breath. CARDIOVASCULAR: No angina symptoms. No CHF symptoms. No atypical chest pain for CAD. No palpitations. No orthopnea. GASTROINTESTINAL: Poor appetite for two days. Severe right flank pain. Mild nausea, no vomiting. No diarrhea or constipation. No hematemesis. No hematochezia. GENITOURINARY: No urgency. No frequency. No dysuria. No hematuria. No obstructive symptoms. No discharge. No pain. No significant abnormal bleeding. MUSCULOSKELETAL: Bodyaches. NEUROLOGICAL: No headache. No neck pain. No syncope. No seizures. No dizziness. PSYCHIATRIC: Not anxious. No depression. No suicidal thoughts. No homicidal thoughts. SKIN: No rash. No lesions. No wounds. ENDOCRINE: No unexplained weight loss. No weight gain. HEMATOLOGIC/LYMPHATIC: No anemia. No purpura. No petechiae. No prolonged or excessive bleeding. No palpable lymph nodes. PERSONAL/FAMILY/SOCIAL HISTORY: The patient is , lives with a friend in [facility]. She smokes 1/2 pack a day. No alcohol abuse. No drug abuse. She performs all activities of daily living. Unemployed. MEDICATIONS: NONE ALLERGIES: NKDA PHYSICAL EXAMINATION: GENERAL: The patient is oriented to time, place and person. VITAL SIGNS: Temperature 104 in the emergency room, pulse 110, respiratory rate 17, BP 130/70. HEENT: Head normocephalic, atraumatic. Eyes: Extraocular muscles are intact. Pupils are equal, round and reactive to light and accommodation. Ears: No lesions. Nose appeared normal. Throat: No exudate or erythema. NECK: Supple. No JVD, no carotid bruit. No lymphadenopathy or thyromegaly. LUNGS: Clear to auscultation. Percussion note normal. Chest symmetrical. HEART: S1, S2, no S3. No murmurs. No cyanosis or clubbing. No ascites. Pulses: Dorsalis pedis and posterior tibial pulses +1 to +2 both sides. ABDOMEN: Soft. Mild tenderness right flank area. Bowel sounds active. No CVA tenderness. No mass felt. EXTREMITIES: No edema. Full range of motion of all extremities, equal. NEUROLOGIC: No focal deficit. Cranial nerves II through XII are grossly intact. No headache, no double vision or headache. SKIN: Not dry. Intact. Turgor - normal. LYMPHATIC: No palpable lymph nodes/no lymphedema. MUSCULOSKELETAL: Normal joints with no swelling. Muscle tone is normal. CT scan of the abdomen showed acute pyelonephritis. Creatinine and BUN all normal. ASSESSMENT: 1. ACUTE PYELONEPHRITIS, RIGHT-SIDED 2. DEHYDRATION PLAN: 1. Will give IV fluids 2. IV antibiotics, Levaquin 750 q.a.m., Azactam 1 gm q.12 3. Telemetry for 24 hours 4. Decadron given IV, 1 cc 5. Zofran for nausea 6. Watch for fluid overload 7. EKG CONDITION: Stable TIME SPENT: More than 70 minutes. MTDD
--- NOTE | 2017-07-31 09:08 | PN ---
DATE OF SERVICE: 07/25/17 SUBJECTIVE: 37 year old white female was in the room in the room when I went to see her, later on I ended up seeing her. The patient's vitals were stable. REVIEW OF SYSTEMS: CONSTITUTIONAL: No night sweats. No fatigue, malaise, lethargy. No fever or chills. HEENT: Eyes: No visual changes. No eye pain. No eye discharge. ENT: No runny nose. No epistaxis. No sinus pain. No sore throat. No odynophagia. No congestion. RESPIRATORY: No cough, no congestion. No hemoptysis. No shortness of breath. CARDIOVASCULAR: No angina symptoms. No CHF symptoms. No atypical chest pain for CAD. No palpitations. No orthopnea. GASTROINTESTINAL: No abdominal pain. No nausea or vomiting. No diarrhea or constipation. No hematemesis. No hematochezia. GENITOURINARY: No urgency. No frequency. No dysuria. No hematuria. No obstructive symptoms. No discharge. No pain. No significant abnormal bleeding. MUSCULOSKELETAL: No musculoskeletal pain; no joint swelling. NEUROLOGICAL: No headache. No neck pain. No syncope. No seizures. No dizziness. PSYCHIATRIC: Not anxious. No depression. No suicidal thoughts. No homicidal thoughts. SKIN: No rash. No lesions. No wounds. ENDOCRINE: No unexplained weight loss. No weight gain. HEMATOLOGIC/LYMPHATIC: No anemia. No purpura. No petechiae. No prolonged or excessive bleeding. No palpable lymph nodes. PHYSICAL EXAMINATION: VITAL SIGNS: She was afebrile with pulse 80, respiratory rate 15,. blood pressure was 120/70. HEENT: Head normocephalic, atraumatic. Eyes: Extraocular muscles are intact. Pupils are equal, round and reactive to light and accommodation. Ears: No lesions. Nose appeared normal. Throat: No exudate or erythema. NECK: Supple. No JVD, no carotid bruit. No lymphadenopathy or thyromegaly. LUNGS: Clear to auscultation. Percussion note normal. Chest symmetrical. HEART: S1, S2, no S3. No murmurs. No cyanosis or clubbing. No ascites. Pulses: Dorsalis pedis and posterior tibial pulses +1 to +2 both sides. ABDOMEN: Soft. Nontender. Bowel sounds active. No CVA tenderness. No mass felt. EXTREMITIES: No edema. Full range of motion of all extremities, equal. NEUROLOGIC: No focal deficit. Cranial nerves II through XII are grossly intact. No headache, no double vision or headache. SKIN: Not dry. Intact. Turgor - normal. LYMPHATIC: No palpable lymph nodes/no lymphedema. MUSCULOSKELETAL: Normal joints with no swelling. Muscle tone is normal. ASSESSMENT: 1. Acute pyelonephritis seems to have resolved 2. Anemia, stable PLAN: 1. Continue IV antibiotics 2. The patient is advised to see Urologist. Declined and said that she doesn't have any insurance. She feels fine. She understands the consequences and I explained to her that very likely she had probably had a kidney stone that she may have passed. 3. Repeat CAT scan did not show any evidence of stone but she still has some irritation there at the site where she had possibly an obstruction. 4. Kidney functions are stable. 5. She also had the IV filtrated and taken out. She refused to get it started. In fact she insisted on going home and I didn't want her to get signed out and was stable for a while so I decided to let her go. Advised her to rest. Increase fluids if fever or chills to go to the emergency room as soon as possible 6. She needs to see [facility] on Sunday. 7. Levaquin 500mg daily for total of 10 days. CONDITION: Stable. TIME SPENT: More than 30 minutes. Plan and coordination of the patient's care discussed in the presence of nurse. EUGENE
--- NOTE | 2017-07-31 09:27 | DS ---
DATE OF SERVICE: 07/25/17 FINAL DIAGNOSIS: 1. Acute pyelonephritis 2. Anemia 3. Possibility of right ureteral stone DISCHARGE INSTRUCTIONS: Discharge home today. Return to [facility] for followup on 07/30/17 at 10am. MEDICATIONS AT DISCHARGE/NEW PRESCRIPTIONS: Levaquin 500mg daily for 10 days. Ferrous Sulfate 325mg take one tablet PO daily ALLERGIES: No known allergies DIET INSTRUCTIONS: Drink plenty of liquids Healthy heart diet. ACTIVITY: Get plenty of rest at home. Gradually increase activity level according to toleration. SMOKING: The patient is an everyday heavy smoker. She has been provided information/ education regarding the added risk a continuation of her tobacco habit causes to her cardiovascular/pulmonary health. She also has been advised of the benefits of complete cessation. She has not verbalized her intent to stop or even cur down. She would benefit from reinforcement of the information provided and continued encourage for complete cessation during karuna follow up visits. DISEASE SPECIFIC EDUCATION: Pyelonephritis Iron deficiency anemia New medications Followup Smoking cessation HOSPITAL COURSE: 37 year old white female was hospitalized with fever and chills, fever of 104. Further work up revealed mild hydronephrosis with acute pyelonephritis on the right side. There was a possibility of stone probably that she may have passed because she had pain on the right flank area going to the right lower quadrant initially. She was rated as 6 to 9 on scale of 1-10. The patient was given Nubain to control her pain. IV Levaquin was started and Azactam was added. She became afebrile within 24 hours. The patient's condition stabilized and she felt a lot better. She was up and about. She was kept in the hospital for 4 days. Culture reports were negative or still pending. She has anemia which seems to be borderline microcytic. She was strongly advised to undergo workup like EKG and colonoscopy which she declined. The patient was also advised to see urologist to which she declined as she doesn't have insurance. She is intelligent and understands the consequences. She was sent home to be followed by [facility] on 07/30/17 before then if she starts having fever or chills or pain she is advised to go to the nearest emergency room CONDITION: Stable. TIME SPENT: More than 60 minutes. EUGENE
--- NOTE | 2017-07-31 09:28 | PN ---
07/21/17: Level 5 07/22/17: Intermediate 07/23/17: Intermediate 07/24/17: Intermediate 07/25/17: D as in discharge MTDD
== END 2017-07-25 13:49 | disposition home or self-care (01) | DRG 690 ==
LOC: ED 14:39 → MEDSURG B 17:08
PROVIDERS: ADMIT Internal Medicine; ATTEND Internal Medicine
DX: N10 Acute pyelonephritis (principal); N13.2 Hydronephrosis with renal and ureteral calculous obstruction; D64.9 Anemia, unspecified; R50.9 Fever, unspecified; E86.0 Dehydration; F17.210 Nicotine dependence, cigarettes, uncomplicated; Z87.440 Personal history of urinary (tract) infections; Z53.20 Procedure and treatment not carried out because of patient's decision for unspecified reasons
CPT/HCPCS: 36415; 80053; 81001; 82607; 82728; 82746; 83540; 83550; 83605; 83690; 84145; 84439; 84443; 84466; 85007; 85025; 85045; 87040; 93005; 93010; 96361; 96365; 96375; 99285

== ENCOUNTER 2017-11-14 09:08 | Inpatient (IN) ==
[2017-11-14] MEDS ORDERED: TORADOL IM STA (10:02)
--- NOTE | 2017-11-14 10:36 | ED.PDOC ---
General ED Provider: Dr. DAREN GLEASON Chief Complaint: Urinary Problem Stated Complaint: flank pain left sided with urinary symptoms Time Seen by Physician: 09:10 Mode of Arrival: Walk-In Information Source: Patient Exam Limitations: No limitations Primary Care Provider: EDIS ARTEAGA Nursing and Triage Documentation Reviewed and Agree: Yes Reviewed sepsis parameters & appropriate labs ordered?: Yes System Inflammatory Response Syndrome: Not Applicable Sepsis Protocol: For patient's 13 years and over: Temp is 96.8 and below OR 101 and greater Pulse >90 BPM Resp >20/minute Acutely Altered Mental Status Are patient's symptoms suggestive of a new infection, such as: -Pneumonia -Skin, Soft Tissue -Endocarditis -UTI -Bone, Joint Infection -Implantable Device -Acute Abdominal Infection -Wound Infection -Meningitis -Blood Stream Catheter Infection -Unknown System Inflammatory Response Syndrome: Not Applicable Complaint Exam - UTI Female Complaint/Exam Patient Complains of: Reports: Painful urination Onset/Duration: today Symptoms Are: Still present Timing: Intermittent Initial Severity: Moderate Current Severity: Moderate Location of Pain: Reports: Left, Flank Associated Signs and Symptoms: Reports: Chills Patient Rh Status: Unknown Related Surgical History: Reports: None CVA Tenderness: No Suprapubic Tenderness: No Differential Diagnoses: Bladder Dysfunction, Cystitis, Pyelonephritis Review of Systems - Review Of Systems Constitutional: Reports: No symptoms Eyes: Reports: No symptoms Ears, Nose, Mouth, Throat: Reports: No symptoms Respiratory: Reports: No symptoms Cardiac: Reports: No symptoms GI: Reports: No symptoms : Reports: Dysuria, Flank pain Musculoskeletal: Reports: No symptoms Skin: Reports: No symptoms Neurological: Reports: No symptoms Endocrine: Reports: No symptoms Hematologic/Lymphatic: Reports: No symptoms All Other Systems: Reviewed and Negative Past Medical History - Past Medical History Previously Healthy: Yes Endocrine: Reports: Unknown Cardiovascular: Reports: Unknown Respiratory: Reports: Unknown Hematological: Reports: Unknown Gastrointestinal: Reports: Unknown Genitourinary: Reports: Unknown Neuro/Psych: Reports: Unknown Musculoskeletal: Reports: Unknown Cancer: Reports: Unknown Last Menstrual Period: unknown, uterine ablation - Surgical History General Surgical History: Reports: Unknown - Family History Family History: Reports: Unknown - Social History Smoking Status: Current every day smoker, Heavy tobacco smoker Hx Substance Use: No Alcohol Screening: None Physical Exam - Physical Exam Appearance: Well-appearing, No pain distress, Well-nourished Eyes: ANGELICA, EOMI, Conjunctiva clear ENT: Ears normal, Nose normal, Oropharynx normal Respiratory: Airway patent, Breath sounds clear, Breath sounds equal, Respirations nonlabored Cardiovascular: RRR, Pulses normal, No rub, No murmur GI/: Soft, Nontender, No masses, Bowel sounds normal, No Organomegaly Musculoskeletal: Normal strength, ROM intact, No edema, No calf tenderness Skin: Warm, Dry, Normal color Neurological: Sensation intact, Motor intact, Reflexes intact, Cranial nerves intact, Alert, Oriented Psychiatric: Affect appropriate, Mood appropriate Physician Notification - Case Discussed Physician Notified: guerrero Time of Notification: 11:00 Admit To: Inpatient Critical Care Note - Critical Care Note Total Time (mins): 0 Course - Course Hematology/Chemistry: 11/16/17 04:10 11/16/17 04:10 Orders, Labs, Meds: Lab Review 11/14/17 11/14/17 11/14/17 09:27 09:27 09:35 WBC 17.30 H RBC 3.87 L Hgb 11.4 L Hct 33.9 L MCV 87.6 MCH 29.5 MCHC 33.6 RDW Coeff of Marbin 12.3 Plt Count 183 Immature Gran % (Auto) 0.7 Neut % (Auto) 81.2 Lymph % (Auto) 5.9 L [place] % (Auto) 11.5 H Eos % (Auto) 0.5 Baso % (Auto) 0.2 Immature Gran # (Auto) 0.1 Neut # (Auto) 14.0 H Lymph # (Auto) 1.0 [place] # (Auto) 2.0 Eos # (Auto) 0.1 Baso # (Auto) 0.0 Sodium Potassium Chloride Carbon Dioxide Anion Gap BUN Creatinine Estimated GFR (MDRD) BUN/Creatinine Ratio Glucose Lactic Acid Calcium Total Bilirubin AST ALT Alkaline Phosphatase Total Protein Albumin Globulin Albumin/Globulin Ratio Urine Color Yellow Urine Clarity Turbid Urine pH 6.0 Ur Specific [place] 1.015 Urine Protein 2+ Urine Glucose (UA) Negative Urine Ketones Negative Urine Blood Negative Urine Nitrite Positive Urine Bilirubin Negative Urine Urobilinogen 0.2 Ur Leukocyte Esterase 1+ Urine Microscopic WBC 50-100 Ur Squamous Epith Cells 20-30 Urine Bacteria 3+ Urine Mucus 3+ Urine Test Negative 11/14/17 11/14/17 09:35 10:20 WBC RBC Hgb Hct MCV MCH MCHC RDW Coeff of Marbin Plt Count Immature Gran % (Auto) Neut % (Auto) Lymph % (Auto) [place] % (Auto) Eos % (Auto) Baso % (Auto) Immature Gran # (Auto) Neut # (Auto) Lymph # (Auto) [place] # (Auto) Eos # (Auto) Baso # (Auto) Sodium 137 Potassium 3.6 Chloride 106 Carbon Dioxide 21 Anion Gap 13.6 BUN 7 Creatinine 0.83 Estimated GFR (MDRD) 77.00 BUN/Creatinine Ratio 8.43 Glucose 101 Lactic Acid 12.3 Calcium 9.1 Total Bilirubin 0.4 AST 150 H ALT 162 H Alkaline Phosphatase 70 Total Protein 6.8 Albumin 2.9 L Globulin 3.9 Albumin/Globulin Ratio 0.74 Urine Color Urine Clarity Urine pH Ur Specific [place] Urine Protein Urine Glucose (UA) Urine Ketones Urine Blood Urine Nitrite Urine Bilirubin Urine Urobilinogen Ur Leukocyte Esterase Urine Microscopic WBC Ur Squamous Epith Cells Urine Bacteria Urine Mucus Urine Test Orders Category Date Time Status ADMIT PATIENT INPATIENT .TO [facility] (NON-MONITORED ADMISSION 11/14/17 12: 24 Active BED) ACTIVITY .BR with [facility] CARE 11/14/17 10:36 Active VITAL SIGNS Q4HR CARE 11/14/17 10:36 Active REGULAR DIET DIETARY 11/14/17 Lunch Ordered BLOOD CULTURE (ED ONLY) Stat LAB 11/14/17 10:20 Received CBC W/ AUTO DIFF DAILY@0600 LAB 11/15/17 04:20 Completed CBC W/ AUTO DIFF DAILY@0600 LAB 11/16/17 04:10 Completed CBC W/ AUTO DIFF Stat LAB 11/14/17 09:35 Completed COMPREHENSIVE METABOLIC PANEL DAILY@0600 LAB 11/15/17 04:20 Completed COMPREHENSIVE METABOLIC PANEL DAILY@0600 LAB 11/16/17 04:10 Completed COMPREHENSIVE METABOLIC PANEL Stat LAB 11/14/17 09:35 Completed LACTIC ACID Stat LAB 11/14/17 10:20 Completed POS BC ID AND BHAVYA Stat LAB 11/14/17 10:20 Results URINALYSIS C & S IF INDICATED Stat LAB 11/14/17 09:27 Completed URINE CULTURE Routine LAB 11/14/17 09:27 Results URINE Stat LAB 11/14/17 09:27 Completed Ketorolac Tromethamine [Toradol] MEDS 11/14/17 10:02 Discontinued 60 mg IM ONCE STA Morphine Sulfate [Morphine 2 mg/ml Syringe] MEDS 11/14/17 11:26 Discontinued 2 mg IVP ONCE STA Ondansetron HCl/Pf [Zofran 4 mg/2 ml] MEDS 11/14/17 11:26 Discontinued 4 mg IVP ONCE STA Piperacillin Sodium/Tazobactam [Zosyn 3.375 gm] 3.375 MEDS 11/14/17 12:00 Discontinued gm 0.9 % Sodium Chloride [Sodium Chloride] 50 ml IV Q6HR Potassium Chloride in 0.9%NaCl [Sodium Chloride 0.9%- MEDS 11/14/17 11:00 Active KCl 20 Meq] 1,000 ml IV 75 mls/hr Sodium Chloride 0.9% [Sodium Chloride] 1,000 ml MEDS 11/14/17 11:46 Discontinued IV 70 mls/hr CT ABD/PEL WO RENAL STONE PROT Stat RADS 11/14/17 09:23 Completed U/S PELVIS IZQUIERDO VAGINAL/NON OB Stat RADS 11/14/17 10:13 Completed Medications Generic Name Dose Route Start Last Admin Trade Name Freq PRN Reason Stop Dose Admin Acetaminophen 1,000 mg 11/14/17 17:05 11/15/17 22:49 Tylenol PO 1,000 mg Q6H PRN Administration elevated temperature Docusate Sodium 100 mg 11/15/17 21:00 11/15/17 20:09 Colace PO 100 mg BID VENU Administration Potassium Chloride/Sodium Chloride 1,000 mls @ 75 mls/hr 11/14/17 11:00 11/15 17:41 Sodium Chloride 0.9%-Kcl 20 Meq IV 75 mls/hr .[id number] VENU Administration Cefepime HCl 1 gm/ Sodium 50 mls @ 50 mls/hr 11/15/17 09:00 11/15/17 20:09 Chloride IV 50 mls/hr Q12HR VENU Administration Ketorolac Tromethamine 30 mg 11/15/17 03:35 11/16/17 01:37 Toradol IVP 30 mg Q6H PRN Administration MODERATE PAIN Meperidine HCl 25 mg 11/14/17 15:31 11/15/17 22:43 Demerol 50 Mg/Ml Vial IVP 25 mg Q8H PRN Administration Abdominal Pain Ondansetron HCl 4 mg 11/14/17 15:31 Zofran 4 Mg/2 Ml IVP Q8H PRN Nausea / Vomiting Discontinued Medications Generic Name Dose Route Start Last Admin Trade Name Freq PRN Reason Stop Dose Admin Acetaminophen 500 mg 11/14/17 17:00 Tylenol PO Q6H PRN elevated temperature Piperacillin Sod/Tazobactam 50 mls @ 50 mls/hr 11/14/17 12:00 11/14/17 23:54 Sod 3.375 gm/ Sodium Chloride IV 50 mls/hr Q6HR VENU Administration Sodium Chloride 1,000 mls @ 70 mls/hr 11/14/17 11:46 11/14/17 11:48 Sodium Chloride IV 11/15/17 02:03 70 mls/hr .[id number] STA Administration Ketorolac Tromethamine 60 mg 11/14/17 10:02 11/14/17 10:39 Toradol IM 11/14/17 10:03 60 mg ONCE STA Administration Magnesium Hydroxide 30 ml 11/15/17 13:32 11/15/17 13:43 Milk Of Magnesia PO 11/15/17 13:33 Not Given ONCE STA Morphine Sulfate 2 mg 11/14/17 11:26 11/14/17 11:38 Morphine 2 Mg/Ml Syringe IVP 11/14/17 11:27 2 mg ONCE STA Administration Ondansetron HCl 4 mg 11/14/17 11:26 11/14/17 15:43 Zofran 4 Mg/2 Ml IVP 11/14/17 11:27 4 mg ONCE STA Administration Vital Signs: Temp Pulse Resp BP Pulse Ox 11/14/17 09:09 99.5 F 103 H 20 105/73 97 Departure - Departure Time of Disposition: 19:00 Disposition: ADMITTED INPATIENT Discharge Problem: Urinary symptoms, Urinary tract infectious disease Condition: Good Pt referred to PMD for follow-up: Yes IPMP verified?: No Allergies/Adverse Reactions: Allergies No Known Allergies Allergy (Verified 11/14/17 09:17) Home Medications: Ambulatory Orders 1 [No Reported Medications] 01/31/17 Disposition Discussed With: Patient
--- NOTE | 2017-11-14 10:53 | CT ---
EXAM: CT of the abdomen pelvis without contrast History: Abdominal pain. Comparison: CT abdomen pelvis 07/24/2017 Technique: Multiplanar CT images through the abdomen pelvis were obtained without the administration of IV contrast Findings: Lung bases are clear. No acute osseous abnormalities. No discrete gallstones identified by CT. No focal liver or splenic lesions. No renal stones and no hydronephrosis. Left perinephric inflammation. No ureteral calculi. No bowel obstruction. The blanquita endix is normal. No bladder wall thickening. No free air. Adnexal structures appear appropriate fo r patient's age. No perirectal inflammation. No peripancreatic inflammation. Adrenal glands are un remarkable. Impression: Left-sided pyelonephritis
--- NOTE | 2017-11-14 10:56 | US ---
EXAM: Transvaginal pelvic ultrasound. History: Left-sided abdominal and pelvic pain. Comparison: CT abdomen pelvis 07/24/2017 Technique: Multiple sonographic images through the pelvis were obtained. Color duplex Doppler was u sed to interrogate vascular flow. Findings: The uterus measures 7.5 cm x 3.7 cm x 4.7 cm. Small Nabothian cysts seen within the cervix. Endomet rium was difficult to visualize probably due to ablation and measures 3 mm thickness. 1 cm anechoic cyst seen within the uterine myometrium adjacent to the endometrium. No fluid in the cul-de-sac. Both ovaries are normal in size. Blood flow was documented within each o vary. No adnexal masses. Impression: 1. No acute sonographic findings in the pelvis. 2. Benign myometrial cyst
[2017-11-14] MEDS ORDERED: ZOFRAN 4 MG/2 ML IVP STA (11:26)
[2017-11-14] MEDS ORDERED: MORPHINE 2 MG/ML SYRINGE IVP STA (11:26)
[2017-11-14] MEDS: ZOSYN 3.375 GM 3.375 GM in SODIUM CHLORIDE 50 ML IV SCH ×3 (11:40→23:54)
[2017-11-14] MEDS ORDERED: SODIUM CHLORIDE 1,000 ML IV STA (11:46)
[2017-11-14] MEDS: SODIUM CHLORIDE 0.9%-KCL 20 MEQ 1,000 ML IV SCH (11:48)
[2017-11-14 15:00] VITALS: BMI 26.0
[2017-11-14] MEDS ORDERED: ZOFRAN 4 MG/2 ML IVP PRN (15:31)
[2017-11-14] MEDS: DEMEROL 50 MG/ML VIAL IVP PRN ×2 (15:41→23:52)
[2017-11-14] MEDS ORDERED: TYLENOL PO PRN (17:00)
[2017-11-14] MEDS ORDERED: TYLENOL ONE (17:09)
[2017-11-14] MEDS: TYLENOL PO PRN (17:11)
[2017-11-15] MEDS: TYLENOL PO PRN ×3 (01:53→22:49)
[2017-11-15] MEDS: SODIUM CHLORIDE 0.9%-KCL 20 MEQ 1,000 ML IV SCH ×2 (02:28→17:41)
[2017-11-15] MEDS: TORADOL IVP PRN (03:40)
[2017-11-15] MEDS: MAXIPIME 1 GM in SODIUM CHLORIDE 50 ML IV SCH ×2 (08:39→20:09)
[2017-11-15] MEDS ORDERED: MAXIPIME 1 GM in SODIUM CHLORIDE 50 ML IV SCH (09:00)
[2017-11-15] MEDS ORDERED: MILK OF MAGNESIA PO STA (13:32)
[2017-11-15] MEDS ORDERED: MILK OF MAGNESIA ONE (13:39)
[2017-11-15] MEDS: DEMEROL 50 MG/ML VIAL IVP PRN ×2 (13:44→22:43)
[2017-11-15] MEDS: COLACE PO SCH (20:09)
[2017-11-16] MEDS: TORADOL IVP PRN (01:37)
[2017-11-16] MEDS ORDERED: DECADRON 4 MG/ML SDV IVP STA (08:43)
[2017-11-16] MEDS: COLACE PO SCH ×2 (08:56→20:03)
[2017-11-16] MEDS: MAXIPIME 1 GM in SODIUM CHLORIDE 50 ML IV SCH ×2 (08:56→20:03)
[2017-11-16] MEDS: SODIUM CHLORIDE 0.9%-KCL 20 MEQ 1,000 ML IV SCH (08:56)
[2017-11-16] MEDS ORDERED: MILK OF MAGNESIA PO STA (08:57)
--- NOTE | 2017-11-16 09:49 | PN ---
DATE OF SERVICE: 11/15/17 SUBJECTIVE: The patient is admitted with left-sided acute pyelonephritis. 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 The patient is on Zosyn. PHYSICAL EXAMINATION: V/S: BP 94/64, respiratory rate 20, heart rate 75, temperature 97.7, saturation 99. HEENT: Normocephalic, atraumatic. Mucosa dry. Pallor positive. No icterus. NECK: Supple. No JVD, no carotid bruit. No lymphadenopathy. LUNGS: Clear to auscultation. No rales or rhonchi. HEART: S1, S2 normal. No S3. No murmur, gallop or regurgitation. ABDOMEN: Soft, nontender. Bowel sounds active. No rigidity. No rebound or guarding. Left-sided CVA tenderness present. EXTREMITIES: No cyanosis, clubbing or pedal edema. MUSCULOSKELETAL: No joint swelling. NEUROLOGIC: Awake, alert, oriented times three. No focal deficit. LYMPHATIC: No lymph nodes palpable. SKIN: Intact. LABS: White count 12.77, hemoglobin 9.1, hematocrit 27.7, platelet count 149. Sodium 136, potassium 4.5, chloride 106, bicarb 20, BUN 11, creatinine 1.73, glucose 131. ASSESSMENT: 1. ACUTE LEFT-SIDED PYELONEPHRITIS, RECURRENT 2. LEUKOCYTOSIS FROM THE PYELONEPHRITIS 3. ELEVATED LIVER ENZYMES 4. ANEMIA PLAN: 1. Continue antibiotic now Cefepime q.12 2. Demerol for pain 3. Zofran 4. IV fluids LABS: White count 12.77, hemoglobin 9.1, hemoglobin 27.2, platelet count 149. Sodium 136, potassium 3.5, chloride 106, bicarb 20, BUN 11, creatinine 1.03, glucose 131. TIME SPENT: More than 35 minutes MTDD
--- NOTE | 2017-11-16 10:09 | HP ---
DATE OF SERVICE: 11/14/17 CHIEF COMPLAINT: The patient is a 37-year-old female with chief complaint of burning, frequency of urination, left-sided flank pain since 11/11/17 radiating to the right back, fever of 102.7. The patient was recently in the hospital with urinary tract infection and pyelonephritis. The patient was seen by Dr. Mackenzie. Temperature 99.5, white count 17,000 with left shift. AST 150, ALT 162. Urine showed positive nitrite, positive leukocyte esterase. CT of abdomen showed left-sided acute pyelonephritis. At that time, the patient was admitted to the hospital for IV antibiotics, IV fluids and pain control. REVIEW OF SYSTEMS: CONSTITUTIONAL: No fever, no chills. HEENT: Normal. ENDOCRINE: No weight gain, no weight loss. CVS: No angina symptoms. No CHF symptoms. No palpitations. No atypical chest pain for CAD. No shortness of breath. No PND, no orthopnea. RESPIRATORY: No cough, no hemoptysis. GI: Abdominal pain, flank pain. No nausea, no vomiting. : Burning, frequency of urination. MUSCULOSKELETAL: No joint swelling. PSYCHIATRIC: Not anxious. No depression. No suicidal thoughts. No homicidal thoughts. SKIN: Intact. No rash. PAST MEDICAL HISTORY: History of pyelonephritis and urinary tract infection Depression/anxiety PAST SURGICAL HISTORY: Tubal ligation PERSONAL HISTORY: The patient does smoke. No alcohol use. No drug use. FAMILY HISTORY: Not significant. MEDICATIONS: (HOME) None ALLERGIES: NKDA PHYSICAL EXAMINATION: V/S: BP 105/73, respiratory rate 20, heart rate 103, temperature 99.5. GENERAL: The patient is a sick-looking lady lying in bed, not in any distress. HEENT: Atraumatic, normocephalic. No scleral icterus. Mucosa dry. Pallor positive. NECK: Supple. No JVD, no bruit. No lymphadenopathy. No thyromegaly. HEART: S1, S2 normal. No murmur. No cyanosis or clubbing. No ascites. LUNGS: Clear to auscultation. No rales or rhonchi. ABDOMEN: Left-sided CVA tenderness positive. Bowel sounds are hypoactive. No rigidity or guarding. EXTREMITIES: No pedal edema. No cyanosis or clubbing MUSCULOSKELETAL: Normal joints, no swelling. NEUROLOGIC: The patient is awake and alert. SKIN: Intact; no open lesions. LYMPHATIC: No lymph nodes palpable. LABS: White count 17.3, hemoglobin 11.4, hematocrit 33.9, platelet count 183. Sodium 137, potassium 3.6, chloride 106, bicarb 21, BUN 7, creatinine 0.83, glucose 101. AST 150, ALT 162. Urine is nitrite positive, leukocyte esterase positive. ASSESSMENT: 1. LEFT-SIDED PYELONEPHRITIS 2. FEBRILE ILLNESS 3. HISTORY OF RECURRENT UTI 4. HISTORY OF TUBAL LIGATION 5. DEPRESSION PLAN: 1. Admit the patient to the regular floor. 2. CBC, CMP today and daily. 3. Regular diet. 4. Demerol for the pain. 5. Zosyn IV. 6. IV fluids at 70 mL/hr. 7. Daily I & O's. TIME SPENT: MORE THAN 75 minutes today MTDD
[2017-11-17] MEDS: SODIUM CHLORIDE 0.9%-KCL 20 MEQ 1,000 ML IV SCH ×2 (04:30→10:00)
[2017-11-17] MEDS ORDERED: CITRATE OF MAGNESIA PO STA (08:44)
[2017-11-17] MEDS: MAXIPIME 1 GM in SODIUM CHLORIDE 50 ML IV SCH ×2 (09:52→20:33)
[2017-11-17] MEDS: COLACE PO SCH ×2 (09:53→20:33)
[2017-11-18] MEDS: SODIUM CHLORIDE 0.9%-KCL 20 MEQ 1,000 ML IV SCH (02:08)
[2017-11-18] MEDS: COLACE PO SCH ×2 (08:18→20:25)
[2017-11-18] MEDS: MAXIPIME 1 GM in SODIUM CHLORIDE 50 ML IV SCH ×2 (08:18→20:25)
[2017-11-18] MEDS: TYLENOL PO PRN (14:50)
[2017-11-19] MEDS: SODIUM CHLORIDE 0.9%-KCL 20 MEQ 1,000 ML IV SCH (05:11)
[2017-11-19] MEDS: COLACE PO SCH (08:38)
[2017-11-19] MEDS: MAXIPIME 1 GM in SODIUM CHLORIDE 50 ML IV SCH (08:39)
--- NOTE | 2017-11-19 09:38 | PN ---
DATE OF SERVICE: 11/16/17 SUBJECTIVE: The patient was admitted with left sided pyelonephritis, urine disease growing the e-coli and the blood culture did come today as e-coli. Still having a fever ; 101. No nausea or vomiting but still left flank pain. REVIEW OF SYSTEMS: CONSTITUTIONAL: No fever, no chills. HEENT: Normal. ENDOCRINE: No weight gain, no weight loss. CVS: No angina symptoms. No CHF symptoms. No palpitations. No atypical chest pain for CAD. No shortness of breath. No PND, no orthopnea. RESPIRATORY: No cough, no hemoptysis. GI: No nausea, no vomiting. No abdominal pain. Left flank pain. : No hematuria. No polyuria. MUSCULOSKELETAL: No joint swelling. PSYCHIATRIC: Not anxious. No depression. No suicidal thoughts. No homicidal thoughts. SKIN: Intact. No rash. PHYSICAL EXAMINATION: V/S: Blood pressure 117/80, respiratory rate 16, heart rate 74, temperature 98.1 with saturation 98%. HEENT: Normocephalic, atraumatic. Mucosa dry. Pallor positive. No icterus. NECK: Supple. No JVD, no carotid bruit. No lymphadenopathy. LUNGS: Clear to auscultation. No rales or rhonchi. HEART: S1, S2 normal. No S3. No murmur, gallop or regurgitation. ABDOMEN: Soft, nontender. Bowel sounds active. No rigidity. No rebound or guarding. Left side CVA tenderness. EXTREMITIES: No cyanosis, clubbing or pedal edema. MUSCULOSKELETAL: No joint swelling. NEUROLOGIC: Awake, alert, oriented times three. No focal deficit. LYMPHATIC: No lymph nodes palpable. SKIN: Intact. LABS: WBC 15.63, hgb 9.0, hct 26.4, plt count 161, sodium 134, potassium 3.4, chloride 107, bicarb 20, BUN 9, creatinine 0.78 and glucose 137. AST and ALT is elevated 105 and 136. ASSESSMENT: 1. Left sided acute pyelonephritis organism e-coli 2. UTI 3. Bacteremia with e-coli 4. Anemia 5. Elevated liver enzymes 6. Recurrent UTI PLAN: 1. Continue the Primaxin 2. Demerol 3. IV fluids 4. Tylenol PRN TIME SPENT: More than 35 minutes MTDD
[2017-11-19 10:01] VITALS: BP 111/70; TEMP 98.7
--- NOTE | 2017-11-19 14:57 | PN ---
DATE OF SERVICE: 11/17/17 SUBJECTIVE: The patient did not have fever in the night. Left flank pain is still present. REVIEW OF SYSTEMS: CONSTITUTIONAL: No fever, no chills. HEENT: Normal. ENDOCRINE: No weight gain, no weight loss. CVS: No angina symptoms. No CHF symptoms. No palpitations. No atypical chest pain for CAD. No shortness of breath. No PND, no orthopnea. RESPIRATORY: No cough, no hemoptysis. GI: No nausea, no vomiting. No abdominal pain. Left flank pain. : No hematuria. No polyuria. MUSCULOSKELETAL: No joint swelling. PSYCHIATRIC: Not anxious. No depression. No suicidal thoughts. No homicidal thoughts. SKIN: Intact. No rash. PHYSICAL EXAMINATION: V/S: Blood pressure 122/84, respiratory rate 16, heart rate 78, temperature 98.3 HEENT: Normocephalic, atraumatic. NECK: Supple. No JVD, no carotid bruit. No lymphadenopathy. LUNGS: Clear to auscultation. No rales or rhonchi. HEART: S1, S2 normal. No S3. No murmur, gallop or regurgitation. ABDOMEN: Soft, nontender. Bowel sounds active. No rigidity. No rebound or guarding. Left sided CVA tenderness. EXTREMITIES: No cyanosis, clubbing or pedal edema. MUSCULOSKELETAL: No joint swelling. NEUROLOGIC: Awake, alert, oriented times three. No focal deficit. LYMPHATIC: No lymph nodes palpable. SKIN: Intact. LABS: WBC 15.63, hgb 9.0, hct 26.4, plt count 161, sodium 134, potassium 3.9, chloride 107, bicarb 20, BUN 9, creatinine 0.78, glucose 157. Elevated liver enzymes, AST 105, ALT 136. ASSESSMENT: 1. Left sided acute pyelonephritis 2. UTI with organism e-coli 3 Bacteremia organism e-coli 4. Elevated liver enzymes 5. Anemia 6. History of urinary tract infection PLAN: 1. Will do anemia profile today 2. Continue the Cefepime 3. Continue IV fluids 4. Out of bed to chair 5. Tylenol PRN 6. Demerol PRN TIME SPENT: More than 35 minutes MTDD
--- NOTE | 2017-11-20 08:57 | PN ---
DATE OF SERVICE: 11/18/17 SUBJECTIVE: The patient not having any fever. The patient was admitted with the left side pyelonephritis, finally moved the bowels. Having some headache and burning on urination. REVIEW OF SYSTEMS: CONSTITUTIONAL: No fever, no chills. HEENT: Normal. Headache. ENDOCRINE: No weight gain, no weight loss. CVS: No angina symptoms. No CHF symptoms. No palpitations. No atypical chest pain for CAD. No shortness of breath. No PND, no orthopnea. RESPIRATORY: No cough, no hemoptysis. GI: No nausea, no vomiting. No abdominal pain. : No hematuria. No polyuria. Burning on urination. MUSCULOSKELETAL: No joint swelling. PSYCHIATRIC: Not anxious. No depression. No suicidal thoughts. No homicidal thoughts. SKIN: Intact. No rash. PHYSICAL EXAMINATION: V/S: Blood pressure 128/85, respiratory rate 18, heart rate 78, temperature 98.7 and saturation 100%. HEENT: Normocephalic, atraumatic. Mucosa dry. Pallor positive. No icterus. NECK: Supple. No JVD, no carotid bruit. No lymphadenopathy. LUNGS: Clear to auscultation. No rales or rhonchi. HEART: S1, S2 normal. No S3. No murmur, gallop or regurgitation. ABDOMEN: Soft, nontender. Bowel sounds active. No rigidity. No rebound or guarding. Left sided CVA tenderness. EXTREMITIES: No cyanosis, clubbing or pedal edema. MUSCULOSKELETAL: No joint swelling. NEUROLOGIC: Awake, alert, oriented times three. No focal deficit. LYMPHATIC: No lymph nodes palpable. SKIN: Intact. LABS: Sodium 140, potassium 4.4, chloride 108, bicarb 26, BUN 7, creatinine 0.78, WBC 12.09, hgb 9.4, hct 28.1, plt count 225. ASSESSMENT: 1. Acute left sided pyelonephritis, organism e-coli Non ESBL 2. Bacteremia organism e-coli 3. Anemia, iron deficiency 4. History of recurrent urinary tract infection 5. Nicotine use 6. Depression 7. Anxiety 8. Tubal ligation PLAN: 1. Will get one more set of the blood cultures and the urine 2. Continue the Maxipime 3. Toradol 4. Demerol for the pain TIME SPENT: More than 35 minutes MTDD
--- NOTE | 2017-11-20 13:11 | DS ---
DATE OF SERVICE: 11/19/17 FINAL DIAGNOSIS: 1. Left sided acute pyelonephritis organism e-coli 2. Bacteremia organism e-coli not ESBL 3. Status post leukocytosis 4. Anemia most likely from the hemodilution 5. Iron deficiency anemia 6. Elevated liver enzymes from sepsis 7. History of recurrent urinary tract infection 8. Depression 9. Anxiety 10.Nicotine use. DISCHARGE INSTRUCTIONS: Discharge the patient home. Followup in the [facility] within 5-7 days. Continue home medications. May need further evaluation as outpatient. MEDICATIONS AT DISCHARGE/ NEW PRESCRIPTIONS: Augmentin 500mg Q 8 hours for 5 days. DIET INSTRUCTIONS: Regular Increase hydration. ACTIVITY: As much as tolerated DISEASE SPECIFIC EDUCATION: Antibiotics Followup HOSPITAL COURSE: Ignacia Wall who was recently in the hospital; July [address] Rubio at that time for the acute pyelonephritis went back home and was doing fine. Came back again with fever and chills, left sided flank pain and found to be in left sided pyelonephritis with elevated WBC of 17,000 with left shift. Slightly elevated AST and ALT was seen. The patient had a fever of 99.7 in the emergency room. At that time with the CT scan findings of left sided pyelonephritis the patient is admitted to the hospital for the IV antibiotics. The patient was started initially on the Zosyn and antibiotics being changed to the Cefepime. Demerol was given for the pain. Toradol was alternated with the Demerol. The patient had temperature of 101.0. Meanwhile the urine was growing E -Coli non ESBL and sensitive to the Cefepime. Antibiotics changed and blood cultures came which were positive for the e-coli again and not ESBL positive. The patient was continued on the antibiotics. Hgb dropped from 11.4 to the 9.8. Iron deficiency anemia was noted. The patient's baseline hgb was 9.4 and 9.6. She has been up and about walking and did not have any problems. The patient did have constipation for which her oral constipation medication did work and started having the regular bowel movements. As the patient did not have any problems she is being discharged home. TIME SPENT: MORE THAN 65 MINUTES MTDD
== END 2017-11-19 13:55 | disposition home or self-care (01) | DRG 690 ==
LOC: ED 09:08 → MEDSURG A 12:35
PROVIDERS: ADMIT Emergency Medicine; ATTEND Emergency Medicine
DX: N10 Acute pyelonephritis (principal); R78.81 Bacteremia; R50.9 Fever, unspecified; R10.9 Unspecified abdominal pain; R79.89 Other specified abnormal findings of blood chemistry; D50.9 Iron deficiency anemia, unspecified; K59.00 Constipation, unspecified; B96.20 Unspecified Escherichia coli [E. coli] as the cause of diseases classified elsewhere; F32.9 Major depressive disorder, single episode, unspecified; F41.9 Anxiety disorder, unspecified; Z87.440 Personal history of urinary (tract) infections; Z72.0 Tobacco use; Z16.11 Resistance to penicillins
CPT/HCPCS: 36415; 74176; 80053; 81001; 81025; 82607; 82728; 82746; 83540; 83550; 83605; 84466; 85025; 85045; 87040; 87070; 87086; 87186; 96365; 96372; 96375; 99284

== ENCOUNTER 2017-11-22 16:43 | Outpatient (CLI) | END 2017-11-22 16:44 | disposition home or self-care (01) | LOC: RHC-LAB 16:43 | PROVIDERS: ATTEND Emergency Medicine | DX: D50.0 Iron deficiency anemia secondary to blood loss (chronic) (principal) | CPT/HCPCS: 36415; 85025 ==

== ENCOUNTER 2017-12-29 20:40 | Inpatient (IN) ==
--- NOTE | 2017-12-29 22:08 | CT ---
Exam: CT abdomen pelvis without intravenous contrast. Comparison: 07/24/2017. Reason for exam: Abdominal pain. FINDINGS: No pleural effusion, or focal consolidation in the partially imaged lung bases. Image interpretation is limited by the lack of intravenous contrast administration. The liver, spleen, gallbladder, adrenal glands, and pancreas appear grossly unremarkable. The spleen is borderline within normal limits for size. There is mild to moderate left-sided perinephric inflammatory change. No obvious hydronephrosis or nephrolithiasis is seen in the left kidney. The entire course of the left ureter is not able to be followed throughout the abdomen and pelvis. No obvious hydronephrosis or nephrolithiasis is seen in the right kidney. The entire course of the r ight ureter is not able to be followed throughout the abdomen and pelvis. The bladder appears grossly unremarkable. No focal small bowel dilatation or transition point. The appendix is unremarkable. No intra-abdominal free air or pelvic free fluid. No suspicious appearing osteoblastic or osteolytic lesions. Impression: 1. There is mild perinephric inflammatory change surrounding the left kidney that is incompletely afsaneh luated without contrast administration. Imaging findings can be seen with infection and inflammation. If clinical concern exists, contrasted CT imaging of the abdomen pelvis may be performed for furthe r characterization. 2. No obvious hydronephrosis or hydroureter is seen in either kidney. 3. No intra-abdominal free air or pelvic free fluid. 4. The appendix appears unremarkable.
--- NOTE | 2017-12-29 22:11 | ED.PDOC ---
General ED Provider: Dr. EARL BONILLA Chief Complaint: Back Pain Stated Complaint: Came for the left lower abdominal pain,. has h/o pyelo in past x 2. had fever of 101 at facility was given Tylenol aT 7 PM Time Seen by Physician: 22:09 Mode of Arrival: Walk-In Information Source: Patient Primary Care Provider: EDIS ARTEAGA Nursing and Triage Documentation Reviewed and Agree: Yes Does patient meet sepsis criteria?: No If yes, has appropriate treatment been initiated?: No System Inflammatory Response Syndrome: Not Applicable Sepsis Protocol: For patient's 13 years and over: Temp is 96.8 and below OR 101 and greater Pulse >90 BPM Resp >20/minute Acutely Altered Mental Status Are patient's symptoms suggestive of a new infection, such as: -Pneumonia -Skin, Soft Tissue -Endocarditis -UTI -Bone, Joint Infection -Implantable Device -Acute Abdominal Infection -Wound Infection -Meningitis -Blood Stream Catheter Infection -Unknown GI Complaint Exam - Abdominal Pain Complaint/Exam Onset: Gradual Symptoms Are: Still present Timing: Constant Initial Severity: Moderate Current Severity: Moderate Location of Pain: LUQ Radiates To: Reports: Flank Character: Reports: Aching, Throbbing Aggravating: Reports: Movement Alleviating: Reports: None Associated Signs and Symptoms: Reports: Nausea Related History: Reports: Similar episode AAA Risk Factors: Reports: None Cardiac Risk Factors: Reports: None Ectopic Risk Factors: Reports: None Ovarian Torsion Risk Factors: Reports: None Surgical Obstruction Risk Factors: Reports: None Abdominal Findings: Present: CVA Tenderness. Absent: Abdominal distention, Unequal femoral pulses Differential Diagnoses: UTI Review of Systems - Review Of Systems Constitutional: Reports: No symptoms Eyes: Reports: No symptoms Ears, Nose, Mouth, Throat: Reports: No symptoms Respiratory: Reports: No symptoms Cardiac: Reports: No symptoms GI: Reports: No symptoms : Reports: Dysuria, Flank pain Musculoskeletal: Reports: No symptoms Skin: Reports: No symptoms Neurological: Reports: No symptoms Endocrine: Reports: No symptoms Hematologic/Lymphatic: Reports: No symptoms All Other Systems: Reviewed and Negative Past Medical History - Past Medical History Previously Healthy: Yes Endocrine: Reports: Unknown Cardiovascular: Reports: Unknown Respiratory: Reports: Unknown Hematological: Reports: Unknown Gastrointestinal: Reports: Unknown Genitourinary: Reports: Urosepsis Neuro/Psych: Reports: Unknown Musculoskeletal: Reports: Unknown Cancer: Reports: Unknown Last Menstrual Period: 2014 UTERINE ABLATION - Surgical History General Surgical History: Reports: Tubal ligation - Family History Family History: Reports: Unknown - Social History Smoking Status: Current every day smoker, Heavy tobacco smoker Smoking Cessation Counseling Time: > 10 min Hx Substance Use: No Alcohol Screening: None - Immunizations Tetanus Shot up to Date: Yes Physical Exam - Physical Exam Appearance: Ill-appearing Pain Distress: Moderate Eyes: EOMI ENT: Ears normal, Nose normal, Oropharynx normal Respiratory: Airway patent, Breath sounds clear, Breath sounds equal, Respirations nonlabored Cardiovascular: RRR, Pulses normal, No rub, No murmur GI/: Soft, Tender (LEFT cva) Musculoskeletal: Normal strength, ROM intact, No edema, No calf tenderness Skin: Warm, Dry, Normal color Neurological: Sensation intact, Motor intact, Reflexes intact, Cranial nerves intact, Alert, Oriented Psychiatric: Affect appropriate, Mood appropriate Critical Care Note - Critical Care Note Total Time (mins): 30 Course - Course Hematology/Chemistry: 12/29/17 21:10 12/29/17 21:10 Orders, Labs, Meds: Lab Review 12/29/17 12/29/17 12/29/17 21:10 21:10 21:10 WBC 13.83 H RBC 4.27 Hgb 12.5 Hct 37.2 MCV 87.1 MCH 29.3 MCHC 33.6 RDW Coeff of [place]bin 12.6 Plt Count 187 Immature Gran % (Auto) 0.4 Neut % (Auto) 69.6 Lymph % (Auto) 18.2 [place] % (Auto) 11.4 H Eos % (Auto) 0.1 Baso % (Auto) 0.3 Immature Gran # (Auto) 0.1 Neut # (Auto) 9.6 H Lymph # (Auto) 2.5 [place] # (Auto) 1.6 Eos # (Auto) 0.0 Baso # (Auto) 0.0 Sodium 137 Potassium 4.5 Chloride 101 Carbon Dioxide 27 Anion Gap 13.5 BUN 8 Creatinine 0.82 Estimated GFR (MDRD) 78.00 BUN/Creatinine Ratio 9.75 Glucose 98 Calcium 9.5 Total Bilirubin 0.7 AST 16 ALT 26 Alkaline Phosphatase 72 Total Protein 7.1 Albumin 3.3 L Globulin 3.8 Albumin/Globulin Ratio 0.87 Urine Color Yellow Urine Clarity Clear Urine pH 7.0 Ur Specific [place] 1.010 Urine Protein Negative Urine Glucose (UA) Negative Urine Ketones Negative Urine Blood Negative Urine Nitrite Negative Urine Bilirubin Negative Urine Urobilinogen 1.0 Ur Leukocyte Esterase Trace Urine Microscopic WBC 0-2 Ur Squamous Epith Cells 0-2 Amorphous Sediment 1+ Urine Bacteria 1+ Urine Test 12/29/17 21:10 WBC RBC Hgb Hct MCV MCH MCHC RDW Coeff of [place] Plt Count Immature Gran % (Auto) Neut % (Auto) Lymph % (Auto) [place] % (Auto) Eos % (Auto) Baso % (Auto) Immature Gran # (Auto) Neut # (Auto) Lymph # (Auto) [place] # (Auto) Eos # (Auto) Baso # (Auto) Sodium Potassium Chloride Carbon Dioxide Anion Gap BUN Creatinine Estimated GFR (MDRD) BUN/Creatinine Ratio Glucose Calcium Total Bilirubin AST ALT Alkaline Phosphatase Total Protein Albumin Globulin Albumin/Globulin Ratio Urine Color Urine Clarity Urine pH Ur Specific [place] Urine Protein Urine Glucose (UA) Urine Ketones Urine Blood Urine Nitrite Urine Bilirubin Urine Urobilinogen Ur Leukocyte Esterase Urine Microscopic WBC Ur Squamous Epith Cells Amorphous Sediment Urine Bacteria Urine Test Negative Orders Category Date Time Status CBC W/ AUTO DIFF Stat LAB 12/29/17 21:10 Completed COMPREHENSIVE METABOLIC PANEL Stat LAB 12/29/17 21:10 Completed URINALYSIS C & S IF INDICATED Stat LAB 12/29/17 21:10 Completed URINE CULTURE Stat LAB 12/29/17 21:10 Received URINE Stat LAB 12/29/17 21:[address] ABDOMEN/PELVIS WO CONTRAST Stat RADS 12/29/17 21:25 Completed Vital Signs: Temp Pulse Resp BP Pulse Ox 12/29/17 20:41 98.7 F 75 20 118/80 96 Departure - Departure Time of Disposition: 22:12 Disposition: ADMITTED INPATIENT Discharge Problem: Pyelonephritis, Urinary tract infectious disease Instructions: Kidney Infection (ED) Condition: Stable Pt referred to PMD for follow-up: No IPMP verified?: No Allergies/Adverse Reactions: Allergies No Known Allergies Allergy (Verified 12/29/17 20:49) Home Medications: Ambulatory Orders 1 [No Reported Medications] 12/29/17 Disposition Discussed With: Patient
[2017-12-29] MEDS ORDERED: ROCEPHIN 1 GM in SODIUM CHLORIDE 50 ML IV SCH (22:30)
[2017-12-29] MEDS ORDERED: DEMEROL 100 MG/ML SYRINGE IVP SCH ×2 (22:30)
[2017-12-29 22:54] VITALS: BMI 26.3
[2017-12-30] MEDS ORDERED: ROCEPHIN ONE (01:00)
[2017-12-30] MEDS ORDERED: DEMEROL 50 MG/ML SYRINGE ONE ×2 (01:02→06:53)
[2017-12-30] MEDS: SODIUM CHLORIDE 1,000 ML IV SCH ×3 (01:10→13:57)
[2017-12-30] MEDS: ZOFRAN 4 MG/2 ML IVP SCH ×4 (01:13→21:51)
[2017-12-30] MEDS: DEMEROL 100 MG/ML SYRINGE IVP SCH ×2 (01:15→06:59)
[2017-12-30] MEDS: TYLENOL PO PRN ×2 (06:57→17:30)
[2017-12-30] MEDS: LOVENOX SUBCUT SCH (08:26)
[2017-12-30] MEDS: DEMEROL 50 MG/ML SYRINGE IVP SCH ×2 (12:57→20:09)
[2017-12-30] MEDS: ROCEPHIN 1 GM in SODIUM CHLORIDE 50 ML IV SCH (20:22)
[2017-12-31] MEDS: DEMEROL 50 MG/ML SYRINGE IVP SCH ×3 (04:15→22:14)
[2017-12-31] MEDS: SODIUM CHLORIDE 1,000 ML IV SCH ×2 (04:16→18:34)
[2017-12-31] MEDS: ZOFRAN 4 MG/2 ML IVP SCH ×3 (05:39→22:13)
[2017-12-31] MEDS: TYLENOL PO PRN (05:41)
[2017-12-31] MEDS: LOVENOX SUBCUT SCH (09:03)
[2017-12-31] MEDS: TORADOL IVP PRN ×2 (09:04→18:27)
--- NOTE | 2017-12-31 11:53 | PN ---
DATE OF SERVICE: 12/30/17 SUBJECTIVE: The patient was admitted with the left sided pyelonephritis. The patient had a fever of 101.7 today morning. She is getting Rocephin 1 gram daily and IV fluids. Still having the pain, no nausea or vomiting. REVIEW OF SYSTEMS: CONSTITUTIONAL: No fever, no chills. HEENT: Normal. ENDOCRINE: No weight gain, no weight loss. CVS: No angina symptoms. No CHF symptoms. No palpitations. No atypical chest pain for CAD. No shortness of breath. No PND, no orthopnea. RESPIRATORY: No cough, no hemoptysis. GI: No nausea, no vomiting. No abdominal pain. : No hematuria. No polyuria. MUSCULOSKELETAL: No joint swelling. PSYCHIATRIC: Not anxious. No depression. No suicidal thoughts. No homicidal thoughts. SKIN: Intact. No rash. PHYSICAL EXAMINATION: V/S: blood pressure 107/64, respiratory rate 20, heart rate 65, temperature 101.7 with saturation 98%. HEENT: Normocephalic, atraumatic. Mucosa dry. Pallor positive. No icterus. NECK: Supple. No JVD, no carotid bruit. No lymphadenopathy. LUNGS: Clear to auscultation. No rales or rhonchi. HEART: S1, S2 normal. No S3. No murmur, gallop or regurgitation. ABDOMEN: Soft, nontender. Bowel sounds active. No rigidity. No rebound or guarding. Left CVA tenderness. EXTREMITIES: No cyanosis, clubbing or pedal edema. MUSCULOSKELETAL: No joint swelling. NEUROLOGIC: Awake, alert, oriented times three. No focal deficit. LYMPHATIC: No lymph nodes palpable. SKIN: Intact. LABS: WBC 11.46, hgb 11.9, hct 36.0, plt count 154, sodium 135, potassium 3.9, chloride 101, bicarb 27, BUN 8, creatinine 0.80 and glucose 93. ASSESSMENT: 1. Acute left sided pyelonephritis 2. Recurrent pyelonephritis 3. Fever 4. Anemia 5. Depression 6. Anxiety PLAN: 1. Continue Rocephin 2. Demerol 3. IV fluids 4. Lovenox for DVT prophylaxis 5. Tylenol for fever TIME SPENT: More than 35 minutes MTDD
[2017-12-31] MEDS: ROCEPHIN 1 GM in SODIUM CHLORIDE 50 ML IV SCH (20:18)
[2018-01-01] MEDS: TORADOL IVP PRN ×2 (02:51→08:43)
[2018-01-01] MEDS: DEMEROL 50 MG/ML SYRINGE IVP SCH ×3 (05:36→22:07)
[2018-01-01] MEDS: ZOFRAN 4 MG/2 ML IVP SCH ×2 (05:37→14:53)
[2018-01-01] MEDS: LOVENOX SUBCUT SCH (08:37)
[2018-01-01] MEDS: SODIUM CHLORIDE 1,000 ML IV SCH ×2 (08:54→22:15)
[2018-01-01 14:37] VITALS: TEMP 97.9
--- NOTE | 2018-01-01 14:54 | PN ---
DATE OF SERVICE: 12/31/17 SUBJECTIVE: The patient was admitted with the pyelonephritis. Last fever on 12/30/17 of 101.7. Still hurting on the left flank. No nausea or vomiting. REVIEW OF SYSTEMS: CONSTITUTIONAL: No fever, no chills. HEENT: Normal. ENDOCRINE: No weight gain, no weight loss. CVS: No angina symptoms. No CHF symptoms. No palpitations. No atypical chest pain for CAD. No shortness of breath. No PND, no orthopnea. RESPIRATORY: No cough, no hemoptysis. GI: No nausea, no vomiting. No abdominal pain. : No hematuria. No polyuria. MUSCULOSKELETAL: No joint swelling. PSYCHIATRIC: Not anxious. No depression. No suicidal thoughts. No homicidal thoughts. SKIN: Intact. No rash. PHYSICAL EXAMINATION: V/S: blood pressure 118/76, respiratory rate 18, heart rate 60, temperature 97.7 with saturation 100%. HEENT: Normocephalic, atraumatic. Mucosa dry. Pallor positive. No icterus. NECK: Supple. No JVD, no carotid bruit. No lymphadenopathy. LUNGS:Decreased and clear to auscultation. No rales or rhonchi. HEART: S1, S2 normal. No S3. No murmur, gallop or regurgitation. ABDOMEN: Soft, nontender. Bowel sounds active. No rigidity. No rebound or guarding. No MUSCULOSKELETAL: No joint swelling. NEUROLOGIC: Awake, alert. No focal deficit. LYMPHATIC: No lymph nodes palpable. SKIN: Intact. LABS: WBC 9.40, hgb 11.1, hct 34.1, plt count 140, sodium 135, potassium 3.9, chloride 103, bicarb 25, BUN 9, creatinine 0.76 and glucose 109. ASSESSMENT: 1. Acute left sided pyelonephritis 2. Recurrent pyelonephritis 3. Anemia 4. Anxiety 5. Depression 6. Substance use 7. Tubal ligation PLAN: 1. Continue the Rocephin 1 gram daily 2. Demerol PRN 3. Add Toradol PRN TIME SPENT: More than 35 minutes MTDD
[2018-01-01] MEDS ORDERED: ZOFRAN 4 MG/2 ML IVP PRN (19:40)
[2018-01-01] MEDS: ROCEPHIN 1 GM in SODIUM CHLORIDE 50 ML IV SCH (20:15)
[2018-01-02] MEDS: DEMEROL 50 MG/ML SYRINGE IVP SCH (06:28)
[2018-01-02] MEDS: LOVENOX SUBCUT SCH (09:10)
[2018-01-02 09:53] VITALS: BP 160/69
--- NOTE | 2018-01-02 17:18 | PCM.HOSP ---
- Initial Hospital Care [id number] 70 Minutes Bedside ([id number]): 12/29. er - Subsequent Care [id number] 35 Minutes per Day ([id number]): 12/30. 12/31. 01/01 - Hospital Discharge [id number] More than 30 Minutes ([id number]): 01/02
--- NOTE | 2018-01-03 10:51 | PN ---
DATE OF SERVICE: 01/01/18 SUBJECTIVE: The patient was admitted with left sided pyelonephritis. No fever or chills. Still complains about left sided flank pain. REVIEW OF SYSTEMS: CONSTITUTIONAL: No fever, no chills. HEENT: Normal. ENDOCRINE: No weight gain, no weight loss. CVS: No angina symptoms. No CHF symptoms. No palpitations. No atypical chest pain for CAD. No shortness of breath. No PND, no orthopnea. RESPIRATORY: No cough, no hemoptysis. GI: No nausea, no vomiting. No abdominal pain. : No hematuria. No polyuria. MUSCULOSKELETAL: No joint swelling. PSYCHIATRIC: Not anxious. No depression. No suicidal thoughts. No homicidal thoughts. SKIN: Intact. No rash. PHYSICAL EXAMINATION: V/S: blood pressure 115/73, respiratory rate 16, heart rate 57, temperature 97.9 with saturation 100% HEENT: Normocephalic, atraumatic. Mucosa dry. Pallor positive. No icterus. NECK: Supple. No JVD, no carotid bruit. No lymphadenopathy. LUNGS: Clear to auscultation. No rales or rhonchi. HEART: S1, S2 normal. No S3. No murmur, gallop or regurgitation. ABDOMEN: Soft, nontender. Bowel sounds active. No rigidity. No rebound or guarding. Left sided CVA tenderness. EXTREMITIES: No cyanosis, clubbing or pedal edema. MUSCULOSKELETAL: No joint swelling. NEUROLOGIC: Awake, alert. No focal deficit. LYMPHATIC: No lymph nodes palpable. SKIN: Intact. LABS: WBC 5.98, hgb 10.2, hct 31.0, plt count 134, sodium 135, potassium 4.0, chloride 106, bicarb 28, BUN 9, creatinine 0.76 and glucose 95. ASSESSMENT: 1. Acute left sided pyelonephritis, recurrent 2. Anxiety 3. Depression 4. Anemia 5. Chronic pain syndrome PLAN: 1. IV Fluids 2. Rocephin 1 gram daily 3. Daily I&O 4. Demerol and Toradol PRN TIME SPENT: More than 35 minutes MTDD
--- NOTE | 2018-01-03 11:22 | DS ---
DATE OF SERVICE: 01/02/18 FINAL DIAGNOSIS: 1. Acute Right sided pyelonephritis, failed outpatient management Augmentin 2. Migraine headaches 3. Slow Hypothalamus gland 4. Tubal ligation 5. Depression 6. Anxiety 7. Heavy smoker DISCHARGE INSTRUCTIONS: Discharge the patient back to home after the [facility]. The [facility] is [facility] with police escort. Followup in the [facility] within 5-7 days. MEDICATIONS AT DISCHARGE/NEW PRESCRIPTIONS: Augmentin 500mg Q 8 hourly for 5 days DIET INSTRUCTIONS: Cardiac and regular Increase hydration. ACTIVITY: Get plenty of rest, as much as tolerated DISEASE SPECIFIC EDUCATION: Frequent urinary tract infection Increase in hydration been discussed Antibiotic use and diarrhea been discussed HOSPITAL COURSE: Ignacia Wall 37 year old female came to the emergency room with left sided flank pain, fever and chills. Temperature was 101. With her history of frequent and recurrent pyelonephritis CT abdomen and pelvis done which showed the left sided pyelonephritis. She was admitted to the hospital and started the Rocephin. Still had a fever of 101.7 after admission. Continue to give pain medication, IV fluids and antibiotic, gradually feeling better. As the patient is up and about feeling better, less flank pain and less CVA tenderness the patient is feeling better, WBC was normal and Hgb dropped from the 12.5 to 9.7 most likely from the hemodilution. Urine culture did not grow any and blood culture did not grow any and at that time the patient being discharged home. TIME SPENT: MORE THAN 65 MINUTES MTDD
== END 2018-01-02 11:27 | DRG 690 ==
LOC: ED 20:40 → MEDSURG B 22:20
PROVIDERS: ADMIT Emergency Medicine; ATTEND Emergency Medicine
DX: N12 Tubulo-interstitial nephritis, not specified as acute or chronic (principal); N39.0 Urinary tract infection, site not specified; R10.12 Left upper quadrant pain; R50.9 Fever, unspecified; R11.0 Nausea; D64.9 Anemia, unspecified; F41.8 Other specified anxiety disorders; G43.909 Migraine, unspecified, not intractable, without status migrainosus; G44.89 Other headache syndrome; Z72.0 Tobacco use
CPT/HCPCS: 36415; 80053; 81001; 81025; 85025; 87086; 99284